=== PATIENT | male | born 1935 | race Caucasian/White ===

== ENCOUNTER 2018-02-03 23:02 | Inpatient (IN) | payer MEDICARE, MEDICAID ==
[~2018-02-03] VITALS: Ht 165.1 cm; Wt 57.2 kg
[~2018-02-03 23:02] MED LIST: AMLO-361 PO; Aspirin PO; CILO100T PO; CLAR10 PO; DICL75TA5 PO; GLIP10TA10 PO; HYDR-4094 PO; Isosorb Dinit/Hydralazine Hcl PO; METF-414 PO; METO-539 PO; Metformin Hcl PO; Metoprolol Tartrate PO; NASOI NS; OMEP20CA10 PO; PENT400T11 PO; SERT50TA12 PO; SUCR1TAB PO; TAMS0.4C31 PO
[2018-02-04] VITALS (8 sets, daily range): BP systolic 137–192; BP diastolic 67–80
[2018-02-04] MEDS ORDERED: METHYLPREDNISOLONE SOD SUCC 125 MG/2 ML VIAL IV STA (00:49)
[2018-02-04] MEDS ORDERED: ALBUTEROL (0.083%) 2.5MG/3ML NEB HHN STA (00:49)
[2018-02-04] MEDS ORDERED: IPRATROPIUM BROMIDE (0.02%) 0.5MG/2.5ML NEB HHN STA (00:49)
[2018-02-04] MEDS ORDERED: LEVOFLOXACIN 750MG PREMIX 150 ML IV ONE (01:00)
[2018-02-04] MEDS ORDERED: SODIUM CHLORIDE 0.9% 1000ML BAG (SEPSIS BOLUS) IV ONE (01:00)
[2018-02-04 01:25] LABS: CHLORIDE 112 mEq/L (98-107)
[2018-02-04 01:29] LABS: PARTIAL THROMBOPLASTIN TIME 27.6 sec (23.4-31.0); PROTHROMBIN TIME 10.3 sec (9.1-11.1)
[2018-02-04 01:32] LABS: BASOPHILS % 0.4 % (0.0-2.0); EOSINOPHILS % 1.2 % (0.0-5.0); HEMATOCRIT. 36.9 % (42.0-52.0); HEMOGLOBIN. 11.8 g/dL (14.0-18.0); LYMPHOCYTES % 13.6 % (20.0-50.0); MEAN CORPUSCULAR HEMOGLOBIN 25.1 pg (28.0-32.0); MEAN CORPUSCULAR VOLUME 78.5 fL (80.0-94.0); MEAN PLATELET VOLUME 8.4 fl (7.4-10.4); MONOCYTES % 7.1 % (2.0-8.0); NEUTROPHILS % 77.7 % (40.0-76.0); PLATELET 288 x1000/uL (130-400); RED CELL DISTRIBUTION WIDTH 17.3 % (11.6-14.6)
[2018-02-04 01:35] LABS: CLARITY URINE CLEAR (CLEAR); COLOR URINE YELLOW (YELLOW); KETONES URINE NEGATIVE (NEGATIVE); LEUKOCYTE ESTERASE URINE NEGATIVE (NEGATIVE); NITRITE URINE NEGATIVE (NEGATIVE); OCCULT BLOOD URINE 1+ (NEGATIVE); PH URINE 6.5 (4.5-8.0); PROTEIN URINE 1+ (NEGATIVE); SPECIFIC GRAVITY URINE 1.004 (1.005-1.030); UROBILINOGEN URINE 0.2 E.U./dL (0.2-1.0)
[2018-02-04] MEDS ORDERED: ASPIRIN 81MG TABLET PO SCH (02:36)
[2018-02-04] MEDS ORDERED: LORAZEPAM 2MG/ML CPJ IV ONE (02:45)
[2018-02-04] MEDS ORDERED: ACETAMINOPHEN 325MG TABLET PO PRN (14:00)
[2018-02-04] MEDS ORDERED: ONDANSETRON HCL 4MG/2ML INJ IV PRN (14:00)
[2018-02-04] MEDS ORDERED: HYDROCODONE/ACETAMINOPHEN 5/325MG TABLET PO PRN (14:00)
[2018-02-04] MEDS ORDERED: LORAZEPAM 0.5MG TABLET PO PRN (14:00)
[2018-02-04] MEDS ORDERED: IPRATROPIUM/ALBUTEROL 0.5-3(2.5)MG/3ML NEB INH PRN (14:00)
[2018-02-04] MEDS ORDERED: CLONIDINE 0.1MG TABLET PO PRN (14:00)
[2018-02-04] MEDS ORDERED: DEXTROSE 50% WATER 50ML SYRINGE IV PRN (14:15)
[2018-02-04] MEDS ORDERED: REGADENOSON 0.4 MG/5 ML IV ONE (15:15)
[2018-02-04 16:10] LABS: *AMPHETAMINES SCREEN URINE NEGATIVE (NEGATIVE); *BARBITURATES SCREEN URINE NEGATIVE (NEGATIVE); *BENZODIAZEPINES SCREEN URINE NEGATIVE (NEGATIVE); *COCAINE SCREEN URINE NEGATIVE (NEGATIVE); METHADONE URINE SCREEN NEGATIVE (NEGATIVE)
[2018-02-04 16:11] LABS: CANNABINOID URINE SCREEN NEGATIVE (NEGATIVE); OPIATES URINE SCREEN NEGATIVE (NEGATIVE); PHENCYCLIDINE URINE SCREEN NEGATIVE (NEGATIVE)
[2018-02-04] MEDS ORDERED: IPRATROPIUM/ALBUTEROL 0.5-3(2.5)MG/3ML NEB HHN PRN (16:15)
[2018-02-04] MEDS: BUDESONIDE 0.5MG/2ML NEB HHN SCH ×2 (16:32→20:20)
[2018-02-04] MEDS: IPRATROPIUM/ALBUTEROL 0.5-3(2.5)MG/3ML NEB HHN SCH ×2 (16:32→20:19)
[2018-02-04] MEDS: NICOTINE 21MG PATCH TD SCH (17:09)
[2018-02-04] MEDS ORDERED: FAMO20TA8 MT (17:21)
[2018-02-04] MEDS ORDERED: CLON0.1T MT (17:21)
[2018-02-04] MEDS ORDERED: AMLO-79 MT (17:21)
[2018-02-04] MEDS ORDERED: OXYB5TAB11 MT (17:21)
[2018-02-04] MEDS ORDERED: SITA100T11 MT (17:21)
[2018-02-04] MEDS ORDERED: ALBU18HF2 IH (17:21)
[2018-02-04] MEDS ORDERED: BUSP10TA3 MT (17:21)
[2018-02-04] MEDS ORDERED: INSULIN LISPRO 100 UNITS/ML SUBCUT SCH (17:30)
[2018-02-04] MEDS: BLOOD SUGAR DIAGNOSTIC STRIP TEST SCH ×2 (18:19→21:49)
[2018-02-04] MEDS: OXYBUTYNIN CHLORIDE 5MG TABLET PO SCH (18:42)
[2018-02-04] MEDS: CLONIDINE 0.1MG TABLET PO SCH (18:42)
[2018-02-04] MEDS: INSULIN LISPRO 100 UNITS/ML SUBCUT SCH ×2 (18:42→21:49)
[2018-02-04 19:06] LABS: PHOSPHORUS 2.3 mg/dL (2.5-4.9)
[2018-02-04 19:11] LABS: CREATINE KINASE MB FRACTION 5.3 ng/mL (0.5-3.6)
[2018-02-04] MEDS: AMLODIPINE 5MG TABLET PO SCH (21:48)
[2018-02-04] MEDS: BUSPIRONE HCL 10MG TABLET PO SCH (22:00)
[2018-02-05] VITALS (9 sets, daily range): BP systolic 131–155; BP diastolic 64–85
[2018-02-05] MEDS: IPRATROPIUM/ALBUTEROL 0.5-3(2.5)MG/3ML NEB HHN SCH ×3 (00:51→15:15)
[2018-02-05] MEDS: BLOOD SUGAR DIAGNOSTIC STRIP TEST SCH ×3 (07:30→17:03)
[2018-02-05 07:55] LABS: MEAN CORPUSCULAR HEMOGLOBIN 25.3 pg (28.0-32.0); MEAN CORPUSCULAR VOLUME 78.6 fL (80.0-94.0); MEAN PLATELET VOLUME 8.5 fl (7.4-10.4); PLATELET 242 x1000/uL (130-400); RED BLOOD CELL COUNT 3.56 mill/uL (4.7-6.1); RED CELL DISTRIBUTION WIDTH 17.4 % (11.6-14.6)
[2018-02-05] MEDS: INSULIN LISPRO 100 UNITS/ML SUBCUT SCH ×3 (08:00→17:07)
[2018-02-05] MEDS: BUSPIRONE HCL 10MG TABLET PO SCH ×3 (09:12→16:58)
[2018-02-05] MEDS: AMLODIPINE 5MG TABLET PO SCH (09:12)
[2018-02-05] MEDS: CLONIDINE 0.1MG TABLET PO SCH ×2 (09:13→16:58)
[2018-02-05] MEDS: OXYBUTYNIN CHLORIDE 5MG TABLET PO SCH ×2 (09:13→16:58)
[2018-02-05] MEDS: NICOTINE 21MG PATCH TD SCH (09:13)
[2018-02-05] MEDS ORDERED: REGADENOSON 0.4 MG/5 ML IV ONE (11:43)
[2018-02-05 14:27] LABS: PLATELET ESTIMATE NORMAL
[2018-02-05] MEDS: BUDESONIDE 0.5MG/2ML NEB HHN SCH (15:15)
[2018-02-05] MEDS ORDERED: AMLO5TAB88 PO (17:36)
[2018-02-05] MEDS ORDERED: SITA50TA3 MT (17:36)
== END 2018-02-05 19:05 | disposition home or self-care (01) | DRG 816 ==
LOC: ER 23:02 → 5EST 02-04 02:22 → EDBEDREQTM 02-04 02:24 → EDBEDREQSVC 02-04 02:24 → EDBEDREQ 02-04 02:24 → ENRESERV 02-04 07:35
PROVIDERS: ADMIT Internal Medicine; ATTEND Internal Medicine
DX: T40.5X1A Poisoning by cocaine, accidental (unintentional), initial encounter (principal); J96.01 Acute respiratory failure with hypoxia; I21.4 Non-ST elevation (NSTEMI) myocardial infarction; D72.829 Elevated white blood cell count, unspecified; E11.22 Type 2 diabetes mellitus with diabetic chronic kidney disease; I13.0 Hypertensive heart and chronic kidney disease with heart failure and stage 1 through stage 4 chronic kidney disease, or unspecified chronic kidney disease; I50.9 Heart failure, unspecified; E78.5 Hyperlipidemia, unspecified; F14.90 Cocaine use, unspecified, uncomplicated; F17.210 Nicotine dependence, cigarettes, uncomplicated; F41.9 Anxiety disorder, unspecified; J44.1 Chronic obstructive pulmonary disease with (acute) exacerbation; J68.0 Bronchitis and pneumonitis due to chemicals, gases, fumes and vapors; K59.00 Constipation, unspecified; K64.9 Unspecified hemorrhoids; N18.9 Chronic kidney disease, unspecified; Z79.82 Long term (current) use of aspirin; Z79.84 Long term (current) use of oral hypoglycemic drugs; Y92.89 Other specified places as the place of occurrence of the external cause; Z71.6 Tobacco abuse counseling; Z91.81 History of falling; Z79.899 Other long term (current) drug therapy
CPT/HCPCS: 36415; 71045; 78452; 80048; 80061; 80305; 82550; 82553; 82962; 83036; 83605; 83735; 83880; 84100; 84443; 84484; 93005; 93017; 93306; 93970; 94640; 96361; 96365; 96375; 97162; 99285; A9500; C1893; J1815; J1956; J2060; J2785; J2930; J7030; J7611; J7620; J7626

== ENCOUNTER 2018-04-17 12:18 | Inpatient (IN) | payer MEDICARE, MEDICAID ==
[~2018-04-17] VITALS: Ht 152.4 cm; Wt 51.0 kg
[~2018-04-17 12:18] MED LIST changes: +ALBU18HF2 IH; -AMLO-361 PO; +AMLO5TAB88 PO; -Aspirin PO; +BUSP10TA3 MT; -CILO100T PO; -CLAR10 PO; +CLON0.1T MT; -DICL75TA5 PO; +FAMO20TA8 MT; -GLIP10TA10 PO; -HYDR-4094 PO; -Isosorb Dinit/Hydralazine Hcl PO; -METF-414 PO; -METO-539 PO; -Metformin Hcl PO; -Metoprolol Tartrate PO; -NASOI NS; -OMEP20CA10 PO; +OXYB5TAB11 MT; -PENT400T11 PO; -SERT50TA12 PO; +SITA50TA3 MT; -SUCR1TAB PO; -TAMS0.4C31 PO
[2018-04-17 14:17] LABS: BASOPHILS % 0.2 % (0.0-2.0); EOSINOPHILS % 0.4 % (0.0-5.0); HEMATOCRIT. 39.3 % (42.0-52.0); HEMOGLOBIN. 12.4 g/dL (14.0-18.0); LYMPHOCYTES % 14.3 % (20.0-50.0); MEAN CORPUSCULAR HEMOGLOBIN 25.1 pg (28.0-32.0); MEAN CORPUSCULAR VOLUME 79.7 fL (80.0-94.0); MEAN PLATELET VOLUME 8.8 fl (7.4-10.4); MONOCYTES % 6.7 % (2.0-8.0); NEUTROPHILS % 78.4 % (40.0-76.0); PLATELET 243 x1000/uL (130-400); RED BLOOD CELL COUNT 4.94 mill/uL (4.7-6.1)
[2018-04-17 14:23] LABS: CHLORIDE 110 mEq/L (98-107)
[2018-04-17 14:24] LABS: INR 1.1; PROTHROMBIN TIME 10.7 sec (9.1-11.1)
[2018-04-17 15:00] LABS: CLARITY URINE CLEAR (CLEAR); COLOR URINE ORANGE (YELLOW); KETONES URINE NEGATIVE (NEGATIVE); LEUKOCYTE ESTERASE URINE NEGATIVE (NEGATIVE); NITRITE URINE NEGATIVE (NEGATIVE); OCCULT BLOOD URINE 3+ (NEGATIVE); PROTEIN URINE 2+ (NEGATIVE); SPECIFIC GRAVITY URINE 1.013 (1.005-1.030); UROBILINOGEN URINE 0.2 E.U./dL (0.2-1.0)
[2018-04-17] MEDS ORDERED: FUROSEMIDE 40MG/4ML VIAL IVP ONE (15:15)
[2018-04-17 17:35] VITALS: BP 120/81
[2018-04-17 20:00] VITALS: BP 160/85
[2018-04-17] MEDS ORDERED: ONDANSETRON HCL 4MG/2ML INJ IV PRN (20:30)
[2018-04-17] MEDS ORDERED: DEXTROSE 50% WATER 50ML SYRINGE IV PRN (20:30)
[2018-04-17] MEDS: INSULIN LISPRO 100 UNITS/ML SUBCUT SCH (21:00)
[2018-04-17] MEDS: BLOOD SUGAR DIAGNOSTIC STRIP TEST SCH (21:00)
[2018-04-17] MEDS: FUROSEMIDE 40MG/4ML VIAL IVP SCH (22:04)
[2018-04-17] MEDS: CLONIDINE 0.1MG TABLET PO SCH (22:04)
[2018-04-17] MEDS: AMLODIPINE 5MG TABLET PO SCH (22:05)
[2018-04-17] MEDS: IPRATROPIUM/ALBUTEROL 0.5-3(2.5)MG/3ML NEB HHN SCH (22:23)
[2018-04-17 23:44] LABS: CREATINE KINASE MB FRACTION 5.1 ng/mL (0.5-3.6)
[2018-04-18] VITALS: BP 167/68
[2018-04-18] MEDS: IPRATROPIUM/ALBUTEROL 0.5-3(2.5)MG/3ML NEB HHN SCH ×7 (02:58→23:51)
[2018-04-18 04:00] VITALS: BP 133/52
[2018-04-18 06:35] LABS: CREATINE KINASE MB FRACTION 4.4 ng/mL (0.5-3.6)
[2018-04-18] MEDS: BLOOD SUGAR DIAGNOSTIC STRIP TEST SCH ×4 (06:41→20:58)
[2018-04-18 07:06] LABS: BASOPHILS % 0.2 % (0.0-2.0); EOSINOPHILS % 0.5 % (0.0-5.0); HEMATOCRIT. 35.9 % (42.0-52.0); HEMOGLOBIN. 11.8 g/dL (14.0-18.0); MEAN CORPUSCULAR HEMOGLOBIN 25.8 pg (28.0-32.0); MEAN CORPUSCULAR VOLUME 78.6 fL (80.0-94.0); MEAN PLATELET VOLUME 8.7 fl (7.4-10.4); MONOCYTES % 8.9 % (2.0-8.0); NEUTROPHILS % 75.4 % (40.0-76.0); PLATELET 221 x1000/uL (130-400); RED BLOOD CELL COUNT 4.57 mill/uL (4.7-6.1); RED CELL DISTRIBUTION WIDTH 16.5 % (11.6-14.6)
[2018-04-18] MEDS: INSULIN LISPRO 100 UNITS/ML SUBCUT SCH ×4 (07:50→21:00)
[2018-04-18 08:00] VITALS: BP 167/72
[2018-04-18] MEDS: AMLODIPINE 5MG TABLET PO SCH ×2 (08:34→20:58)
[2018-04-18] MEDS: OXYBUTYNIN CHLORIDE 5MG TABLET PO SCH ×2 (08:34→17:11)
[2018-04-18] MEDS: FUROSEMIDE 40MG/4ML VIAL IVP SCH (08:34)
[2018-04-18] MEDS: FAMOTIDINE 20MG TABLET PO SCH (08:34)
[2018-04-18] MEDS: BUSPIRONE HCL 10MG TABLET PO SCH ×3 (08:34→17:11)
[2018-04-18] MEDS: CLONIDINE 0.1MG TABLET PO SCH ×2 (08:35→20:58)
[2018-04-18] MEDS: ENOXAPARIN 30MG/0.3ML SYR SUBCUT SCH (08:37)
[2018-04-18 11:28] VITALS: BP 133/64
[2018-04-18 16:04] VITALS: BP 135/66
[2018-04-18 16:25] LABS: CREATINE KINASE MB FRACTION 4.6 ng/mL (0.5-3.6)
[2018-04-18] MEDS: ACETAMINOPHEN 325MG TABLET PO PRN (17:18)
[2018-04-18 20:00] VITALS: BP 132/71
[2018-04-18] MEDS: BUDESONIDE 0.5MG/2ML NEB HHN SCH (20:50)
[2018-04-18] MEDS: LACTULOSE 20G/30ML UDC PO PRN (20:58)
[2018-04-19] VITALS: BP 147/77
[2018-04-19] MEDS: IPRATROPIUM/ALBUTEROL 0.5-3(2.5)MG/3ML NEB HHN SCH ×5 (02:30→21:47)
[2018-04-19 04:00] VITALS: BP 150/74
[2018-04-19] MEDS: INSULIN LISPRO 100 UNITS/ML SUBCUT SCH ×3 (07:50→20:32)
[2018-04-19 08:00] VITALS: BP 174/85
[2018-04-19] MEDS: BLOOD SUGAR DIAGNOSTIC STRIP TEST SCH ×3 (08:14→20:22)
[2018-04-19] MEDS: FAMOTIDINE 20MG TABLET PO SCH (08:21)
[2018-04-19] MEDS: AMLODIPINE 5MG TABLET PO SCH ×2 (08:21→20:21)
[2018-04-19] MEDS: BUSPIRONE HCL 10MG TABLET PO SCH ×3 (08:21→16:45)
[2018-04-19] MEDS: OXYBUTYNIN CHLORIDE 5MG TABLET PO SCH ×2 (08:21→16:45)
[2018-04-19] MEDS: FUROSEMIDE 40MG/4ML VIAL IVP SCH (08:21)
[2018-04-19] MEDS: CLONIDINE 0.1MG TABLET PO SCH ×3 (08:22→22:00)
[2018-04-19] MEDS: ENOXAPARIN 30MG/0.3ML SYR SUBCUT SCH (08:24)
[2018-04-19] MEDS: BUDESONIDE 0.5MG/2ML NEB HHN SCH ×2 (10:00→21:46)
[2018-04-19 12:00] VITALS: BP 150/72
[2018-04-19 16:00] VITALS: BP 139/63
[2018-04-19] MEDS: GABAPENTIN 300MG CAPSULE PO PRN (16:46)
[2018-04-19 20:00] VITALS: BP 144/61
[2018-04-19] MEDS: ACETAMINOPHEN 325MG TABLET PO PRN (20:22)
[2018-04-20 00:03] VITALS: BP 127/58
[2018-04-20] MEDS: IPRATROPIUM/ALBUTEROL 0.5-3(2.5)MG/3ML NEB HHN SCH ×6 (01:20→20:23)
[2018-04-20 04:08] VITALS: BP 126/62
[2018-04-20] MEDS: CLONIDINE 0.1MG TABLET PO SCH ×3 (05:44→21:16)
[2018-04-20] MEDS: BLOOD SUGAR DIAGNOSTIC STRIP TEST SCH ×4 (07:20→21:51)
[2018-04-20 07:28] LABS: HEMATOCRIT 34.1 % (42.0-52.0); HEMOGLOBIN 10.8 g/dL (14.0-18.0); MEAN CORPUSCULAR HEMOGLOBIN 24.9 pg (28.0-32.0); MEAN CORPUSCULAR VOLUME 78.8 fL (80.0-94.0); PLATELET 227 x1000/uL (130-400); RED BLOOD CELL COUNT 4.33 mill/uL (4.7-6.1); RED CELL DISTRIBUTION WIDTH 16.7 % (11.6-14.6)
[2018-04-20] MEDS: INSULIN LISPRO 100 UNITS/ML SUBCUT SCH ×4 (07:47→21:00)
[2018-04-20 08:03] VITALS: BP 137/68
[2018-04-20] MEDS: BUDESONIDE 0.5MG/2ML NEB HHN SCH ×2 (08:16→20:23)
[2018-04-20] MEDS: FUROSEMIDE 40MG/4ML VIAL IVP SCH (09:10)
[2018-04-20] MEDS: AMLODIPINE 5MG TABLET PO SCH ×2 (09:11→21:16)
[2018-04-20] MEDS: ENOXAPARIN 30MG/0.3ML SYR SUBCUT SCH (09:11)
[2018-04-20] MEDS: FAMOTIDINE 20MG TABLET PO SCH (09:11)
[2018-04-20] MEDS: BUSPIRONE HCL 10MG TABLET PO SCH ×3 (09:11→17:15)
[2018-04-20] MEDS: GABAPENTIN 300MG CAPSULE PO PRN (09:12)
[2018-04-20] MEDS: OXYBUTYNIN CHLORIDE 5MG TABLET PO SCH ×2 (09:12→17:15)
[2018-04-20 12:00] VITALS: BP 117/61
[2018-04-20 16:00] VITALS: BP 127/59
[2018-04-20 20:00] VITALS: BP 126/55
[2018-04-21] VITALS: BP 142/64
[2018-04-21] MEDS: IPRATROPIUM/ALBUTEROL 0.5-3(2.5)MG/3ML NEB HHN SCH ×7 (00:30→22:25)
[2018-04-21 04:00] VITALS: BP 131/58
[2018-04-21] MEDS: CLONIDINE 0.1MG TABLET PO SCH ×3 (06:20→21:03)
[2018-04-21] MEDS: BLOOD SUGAR DIAGNOSTIC STRIP TEST SCH ×4 (06:45→20:47)
[2018-04-21] MEDS: INSULIN LISPRO 100 UNITS/ML SUBCUT SCH ×4 (07:11→20:47)
[2018-04-21 08:00] VITALS: BP 146/56
[2018-04-21] MEDS: AMLODIPINE 5MG TABLET PO SCH ×2 (08:05→20:46)
[2018-04-21] MEDS: BUSPIRONE HCL 10MG TABLET PO SCH ×3 (08:05→17:00)
[2018-04-21] MEDS: FAMOTIDINE 20MG TABLET PO SCH (08:05)
[2018-04-21] MEDS: OXYBUTYNIN CHLORIDE 5MG TABLET PO SCH ×2 (08:05→16:59)
[2018-04-21] MEDS: FUROSEMIDE 40MG/4ML VIAL IVP SCH (08:05)
[2018-04-21] MEDS: ENOXAPARIN 30MG/0.3ML SYR SUBCUT SCH (09:00)
[2018-04-21] MEDS: BUDESONIDE 0.5MG/2ML NEB HHN SCH (09:27)
[2018-04-21 12:30] VITALS: BP 125/62
[2018-04-21] MEDS: SODIUM CHLORIDE 0.45% 1,000 ML IV SCH (12:56)
[2018-04-21 15:11] LABS: BG BASE EXCESS -2.5 mmol/L (-2.0-2.0); BG CARBOXYHEMOGLOBIN 0.4 % (0.5-1.5); BG FRACTION INSPIRED OXYGEN 21; BG HCO3 ACT 21.7 mmol/L (22.0-26.0); BG METHEMOGLOBIN 0.4 % (0.0-1.5); BG OXYGEN SATURATION 90.9 % (92.0-98.5); BG OXYHEMOGLOBIN 90.2 % (94.0-97.0); BG PCO2 35.2 mmHg (35.0-45.0); BG PH 7.407 (7.350-7.450); BG PO2 65.2 mmHg (75.0-100.0); BG SAMPLE SITE RIGHT RADIAL; BG TOTAL HEMOGLOBIN 11.7 g/dL (12.0-18.0); BG VENT MODE ROOM AIR
[2018-04-21 16:00] VITALS: BP 137/61
[2018-04-21] MEDS: LACTULOSE 20G/30ML UDC PO PRN (17:34)
[2018-04-21 20:00] VITALS: BP 145/73
[2018-04-21] MEDS: TAMSULOSIN HCL 0.4MG SR CAPSULE PO SCH (20:46)
[2018-04-22 00:11] VITALS: BP 139/65
[2018-04-22] MEDS: IPRATROPIUM/ALBUTEROL 0.5-3(2.5)MG/3ML NEB HHN SCH ×6 (02:44→21:51)
[2018-04-22] MEDS: SODIUM CHLORIDE 0.45% 1,000 ML IV SCH ×2 (03:12→21:31)
[2018-04-22 04:00] VITALS: BP 154/66
[2018-04-22] MEDS: CLONIDINE 0.1MG TABLET PO SCH ×3 (06:31→21:31)
[2018-04-22] MEDS: BLOOD SUGAR DIAGNOSTIC STRIP TEST SCH ×4 (06:31→21:31)
[2018-04-22] MEDS: INSULIN LISPRO 100 UNITS/ML SUBCUT SCH ×4 (07:50→21:00)
[2018-04-22 08:00] VITALS: BP 140/55
[2018-04-22] MEDS: FUROSEMIDE 40MG/4ML VIAL IVP SCH (08:06)
[2018-04-22] MEDS: OXYBUTYNIN CHLORIDE 5MG TABLET PO SCH ×2 (08:06→17:17)
[2018-04-22] MEDS: BUSPIRONE HCL 10MG TABLET PO SCH ×3 (08:06→17:17)
[2018-04-22] MEDS: FAMOTIDINE 20MG TABLET PO SCH (08:06)
[2018-04-22] MEDS: AMLODIPINE 5MG TABLET PO SCH ×2 (08:06→21:31)
[2018-04-22] MEDS: ENOXAPARIN 30MG/0.3ML SYR SUBCUT SCH (08:25)
[2018-04-22 12:00] VITALS: BP 136/58
[2018-04-22 16:00] VITALS: BP 131/59
[2018-04-22] MEDS: GABAPENTIN 300MG CAPSULE PO PRN (17:17)
[2018-04-22] MEDS: LACTULOSE 20G/30ML UDC PO PRN (17:17)
[2018-04-22 19:06] LABS: ANTI-NUCLEAR ANTIBODIES DIRECT Negative (Negative)
[2018-04-22 20:00] VITALS: BP 131/59
[2018-04-22] MEDS: TAMSULOSIN HCL 0.4MG SR CAPSULE PO SCH (21:31)
[2018-04-23] VITALS: BP 150/69
[2018-04-23] MEDS: IPRATROPIUM/ALBUTEROL 0.5-3(2.5)MG/3ML NEB HHN SCH ×6 (00:59→19:55)
[2018-04-23 04:00] VITALS: BP 132/56
[2018-04-23 05:22] LABS: COMPLEMENT C3 142 mg/dL (82-167)
[2018-04-23] MEDS: CLONIDINE 0.1MG TABLET PO SCH ×3 (06:33→21:09)
[2018-04-23] MEDS: BLOOD SUGAR DIAGNOSTIC STRIP TEST SCH ×4 (06:33→21:09)
[2018-04-23] MEDS: INSULIN LISPRO 100 UNITS/ML SUBCUT SCH ×4 (07:50→21:00)
[2018-04-23 08:00] VITALS: BP 121/63
[2018-04-23] MEDS: FUROSEMIDE 40MG/4ML VIAL IVP SCH (08:17)
[2018-04-23] MEDS: OXYBUTYNIN CHLORIDE 5MG TABLET PO SCH ×2 (08:20→17:57)
[2018-04-23] MEDS: AMLODIPINE 5MG TABLET PO SCH ×2 (08:20→21:09)
[2018-04-23] MEDS: BUSPIRONE HCL 10MG TABLET PO SCH ×3 (08:20→17:57)
[2018-04-23] MEDS: ENOXAPARIN 30MG/0.3ML SYR SUBCUT SCH (08:21)
[2018-04-23] MEDS: FAMOTIDINE 20MG TABLET PO SCH (08:21)
[2018-04-23 12:00] VITALS: BP 117/54
[2018-04-23] MEDS: SODIUM CHLORIDE 0.45% 1,000 ML IV SCH (12:52)
[2018-04-23 14:27] LABS: BASOPHILS % 0.3 % (0.0-2.0); EOSINOPHILS % 0.9 % (0.0-5.0); HEMOGLOBIN. 10.4 g/dL (14.0-18.0); LYMPHOCYTES % 9.9 % (20.0-50.0); MEAN CORPUSCULAR HEMOGLOBIN 25.2 pg (28.0-32.0); MEAN CORPUSCULAR VOLUME 80.2 fL (80.0-94.0); MEAN PLATELET VOLUME 8.5 fl (7.4-10.4); MONOCYTES % 8.9 % (2.0-8.0); PLATELET 216 x1000/uL (130-400); RED BLOOD CELL COUNT 4.11 mill/uL (4.7-6.1); RED CELL DISTRIBUTION WIDTH 16.5 % (11.6-14.6)
[2018-04-23 16:00] VITALS: BP 153/59
[2018-04-23] MEDS ORDERED: SODIUM POLYSTYRENE SULFONATE 15 G/60 ML BOT PO NR (20:30)
[2018-04-23 20:49] VITALS: BP 134/55
[2018-04-23] MEDS: TAMSULOSIN HCL 0.4MG SR CAPSULE PO SCH (21:08)
[2018-04-23] MEDS: LACTULOSE 20G/30ML UDC PO SCH (21:08)
[2018-04-24] VITALS (7 sets, daily range): BP systolic 129–150; BP diastolic 47–65
[2018-04-24] MEDS: IPRATROPIUM/ALBUTEROL 0.5-3(2.5)MG/3ML NEB HHN SCH ×6 (00:20→22:22)
[2018-04-24] MEDS: SODIUM CHLORIDE 0.45% 1,000 ML IV SCH ×2 (05:40→23:05)
[2018-04-24 06:35] LABS: BASOPHILS % 0.3 % (0.0-2.0); HEMATOCRIT. 35.9 % (42.0-52.0); HEMOGLOBIN. 11.4 g/dL (14.0-18.0); LYMPHOCYTES % 9.3 % (20.0-50.0); MEAN CORPUSCULAR HEMOGLOBIN 25.3 pg (28.0-32.0); MEAN CORPUSCULAR VOLUME 79.3 fL (80.0-94.0); MEAN PLATELET VOLUME 8.4 fl (7.4-10.4); MONOCYTES % 7.4 % (2.0-8.0); PLATELET 270 x1000/uL (130-400); RED BLOOD CELL COUNT 4.53 mill/uL (4.7-6.1); RED CELL DISTRIBUTION WIDTH 16.6 % (11.6-14.6)
[2018-04-24] MEDS: BLOOD SUGAR DIAGNOSTIC STRIP TEST SCH ×4 (06:51→21:06)
[2018-04-24] MEDS: CLONIDINE 0.1MG TABLET PO SCH ×3 (06:51→23:04)
[2018-04-24] MEDS: INSULIN LISPRO 100 UNITS/ML SUBCUT SCH ×4 (07:50→21:00)
[2018-04-24] MEDS: LACTULOSE 20G/30ML UDC PO SCH (09:00)
[2018-04-24] MEDS: OXYBUTYNIN CHLORIDE 5MG TABLET PO SCH ×2 (09:04→17:43)
[2018-04-24] MEDS: AMLODIPINE 5MG TABLET PO SCH ×2 (09:04→21:06)
[2018-04-24] MEDS: FUROSEMIDE 40MG/4ML VIAL IVP SCH (09:04)
[2018-04-24] MEDS: BUSPIRONE HCL 10MG TABLET PO SCH (09:04)
[2018-04-24] MEDS: FAMOTIDINE 20MG TABLET PO SCH (09:04)
[2018-04-24] MEDS: ENOXAPARIN 30MG/0.3ML SYR SUBCUT SCH (09:10)
[2018-04-24] MEDS: TAMSULOSIN HCL 0.4MG SR CAPSULE PO SCH (21:05)
[2018-04-25] VITALS: BP 105/57
[2018-04-25] MEDS: IPRATROPIUM/ALBUTEROL 0.5-3(2.5)MG/3ML NEB HHN SCH ×4 (01:46→11:42)
[2018-04-25 04:00] VITALS: BP 149/73
[2018-04-25] MEDS: BLOOD SUGAR DIAGNOSTIC STRIP TEST SCH ×2 (06:28→12:46)
[2018-04-25] MEDS: CLONIDINE 0.1MG TABLET PO SCH ×2 (06:28→14:15)
[2018-04-25 06:46] LABS: BASOPHILS % 0.4 % (0.0-2.0); HEMATOCRIT. 31.7 % (42.0-52.0); HEMOGLOBIN. 10.1 g/dL (14.0-18.0); LYMPHOCYTES % 12.4 % (20.0-50.0); MEAN CORPUSCULAR HEMOGLOBIN 25.4 pg (28.0-32.0); MEAN CORPUSCULAR VOLUME 79.2 fL (80.0-94.0); MEAN PLATELET VOLUME 8.2 fl (7.4-10.4); MONOCYTES % 8.5 % (2.0-8.0); NEUTROPHILS % 77.7 % (40.0-76.0); PLATELET 248 x1000/uL (130-400); RED BLOOD CELL COUNT 3.99 mill/uL (4.7-6.1); RED CELL DISTRIBUTION WIDTH 16.2 % (11.6-14.6)
[2018-04-25] MEDS: INSULIN LISPRO 100 UNITS/ML SUBCUT SCH ×2 (07:40→12:46)
[2018-04-25 08:00] VITALS: BP 138/60
[2018-04-25] MEDS: ENOXAPARIN 30MG/0.3ML SYR SUBCUT SCH (08:25)
[2018-04-25] MEDS: FUROSEMIDE 40MG/4ML VIAL IVP SCH (08:25)
[2018-04-25] MEDS: FAMOTIDINE 20MG TABLET PO SCH (08:25)
[2018-04-25] MEDS: AMLODIPINE 5MG TABLET PO SCH (08:25)
[2018-04-25] MEDS: OXYBUTYNIN CHLORIDE 5MG TABLET PO SCH ×2 (08:25→16:49)
[2018-04-25 12:00] VITALS: BP 124/55
[2018-04-25] MEDS: SODIUM CHLORIDE 0.45% 1,000 ML IV SCH (14:14)
[2018-04-25 14:58] VITALS: BP 124/55
[2018-04-25 16:00] VITALS: BP 135/67
== END 2018-04-25 18:45 | disposition home or self-care (01) | DRG 199 ==
LOC: ER 12:18 → 6WST 15:03 → EDBEDREQ 15:08 → ENRESERV 16:57
PROVIDERS: ADMIT Internal Medicine; ATTEND Internal Medicine
DX: I16.0 Hypertensive urgency (principal); J96.01 Acute respiratory failure with hypoxia; N17.9 Acute kidney failure, unspecified; I50.31 Acute diastolic (congestive) heart failure; E11.22 Type 2 diabetes mellitus with diabetic chronic kidney disease; J44.0 Chronic obstructive pulmonary disease with (acute) lower respiratory infection; D50.9 Iron deficiency anemia, unspecified; F17.200 Nicotine dependence, unspecified, uncomplicated; J44.1 Chronic obstructive pulmonary disease with (acute) exacerbation; N13.8 Other obstructive and reflux uropathy; N18.9 Chronic kidney disease, unspecified; N40.1 Benign prostatic hyperplasia with lower urinary tract symptoms; J20.9 Acute bronchitis, unspecified; I13.0 Hypertensive heart and chronic kidney disease with heart failure and stage 1 through stage 4 chronic kidney disease, or unspecified chronic kidney disease; R33.8 Other retention of urine; J45.909 Unspecified asthma, uncomplicated; Z98.49 Cataract extraction status, unspecified eye; Z79.899 Other long term (current) drug therapy
CPT/HCPCS: 36415; 36600; 71045; 76770; 80048; 82375; 82550; 82553; 82805; 82962; 83880; 84484; 85027; 86038; 86160; 93005; 93306; 94640; 96374; 97110; 97116; 97162; 99285; C1893; J1650; J1815; J1940; J7620; J7626; A4315

== ENCOUNTER 2018-05-17 14:44 | Inpatient (IN) | payer MEDICARE, MEDICAID ==
[~2018-05-17] VITALS: Ht 160 cm; Wt 54.1 kg
[2018-05-17] MEDS ORDERED: SODIUM CHLORIDE 0.9% 1,000 ML IV ONE (16:18)
[2018-05-17] MEDS ORDERED: LEVOFLOXACIN 250MG TABLET PO ONE (18:15)
[2018-05-17 18:19] LABS: CLARITY URINE CLEAR (CLEAR); COLOR URINE YELLOW (YELLOW); KETONES URINE NEGATIVE (NEGATIVE); LEUKOCYTE ESTERASE URINE 1+ (NEGATIVE); NITRITE URINE NEGATIVE (NEGATIVE); OCCULT BLOOD URINE TRACE (NEGATIVE); PH URINE 5.5 (4.5-8.0); PROTEIN URINE TRACE (NEGATIVE); SPECIFIC GRAVITY URINE 1.011 (1.005-1.030); UROBILINOGEN URINE 0.2 E.U./dL (0.2-1.0)
[2018-05-17 18:20] LABS: BASOPHILS % 0.4 % (0.0-2.0); EOSINOPHILS % 1.1 % (0.0-5.0); HEMOGLOBIN. 9.9 g/dL (14.0-18.0); LYMPHOCYTES % 15.1 % (20.0-50.0); MEAN CORPUSCULAR VOLUME 78.2 fL (80.0-94.0); MEAN PLATELET VOLUME 8.3 fl (7.4-10.4); MONOCYTES % 8.2 % (2.0-8.0); NEUTROPHILS % 75.2 % (40.0-76.0); PLATELET 219 x1000/uL (130-400); RED BLOOD CELL COUNT 3.96 mill/uL (4.7-6.1); RED CELL DISTRIBUTION WIDTH 16.7 % (11.6-14.6)
[2018-05-17 18:21] LABS: CHLORIDE 113 mEq/L (98-107)
[2018-05-17 18:22] LABS: PROTHROMBIN TIME 10.2 sec (9.1-11.1)
[2018-05-17 21:35] VITALS: BP 124/61
[2018-05-17 22:41] VITALS: BP 129/61
[2018-05-18] VITALS: BP 133/55
[2018-05-18] MEDS ORDERED: CEFTRIAXONE 250 MG in DEXTROSE 5% WATER 50 ML IV SCH (02:00)
[2018-05-18] MEDS ORDERED: SODIUM CHLORIDE 0.9% 1,000 ML IV SCH (03:30)
[2018-05-18] MEDS: MORPHINE SULFATE 4 MG/ML CPJ (NOT FOR IM USE) IV PRN ×2 (03:44→15:56)
[2018-05-18 04:00] VITALS: BP 152/62
[2018-05-18] MEDS ORDERED: CEFTRIAXONE 250 MG in DEXTROSE 5% WATER 50 ML IV NR (05:00)
[2018-05-18] MEDS ORDERED: ACETAMINOPHEN 325MG TABLET PO PRN (08:15)
[2018-05-18 08:30] VITALS: BP 147/54
[2018-05-18] MEDS: ONDANSETRON HCL 4MG/2ML INJ IV PRN ×2 (08:37→17:36)
[2018-05-18] MEDS: AMLODIPINE 5MG TABLET PO SCH ×2 (08:40→09:12)
[2018-05-18] MEDS: TAMSULOSIN HCL 0.4MG SR CAPSULE PO SCH ×2 (08:40→09:12)
[2018-05-18 09:23] LABS: BASOPHILS % 0.6 % (0.0-2.0); EOSINOPHILS % 1.2 % (0.0-5.0); HEMATOCRIT. 29.6 % (42.0-52.0); HEMOGLOBIN. 9.4 g/dL (14.0-18.0); LYMPHOCYTES % 27.9 % (20.0-50.0); MEAN CORPUSCULAR VOLUME 78.6 fL (80.0-94.0); MEAN PLATELET VOLUME 8.6 fl (7.4-10.4); MONOCYTES % 8.5 % (2.0-8.0); NEUTROPHILS % 61.8 % (40.0-76.0); PLATELET 208 x1000/uL (130-400); RED BLOOD CELL COUNT 3.77 mill/uL (4.7-6.1); RED CELL DISTRIBUTION WIDTH 16.8 % (11.6-14.6)
[2018-05-18] MEDS ORDERED: LEVOFLOXACIN 500MG TABLET PO SCH (11:00)
[2018-05-18 12:00] VITALS: BP 142/64
[2018-05-18] MEDS: IPRATROPIUM/ALBUTEROL 0.5-3(2.5)MG/3ML NEB HHN PRN ×2 (13:17→16:53)
[2018-05-18] MEDS ORDERED: CEFEPIME 1,000 MG in DEXTROSE 5% WATER 50 ML IV SCH (13:30)
[2018-05-18] MEDS ORDERED: FUROSEMIDE 40MG TABLET PO SCH (13:45)
[2018-05-18 16:00] VITALS: BP 132/66
[2018-05-18 20:00] VITALS: BP 147/67
[2018-05-19] VITALS (7 sets, daily range): BP systolic 150–171; BP diastolic 66–80
[2018-05-19] MEDS: IPRATROPIUM/ALBUTEROL 0.5-3(2.5)MG/3ML NEB HHN PRN ×2 (01:21→05:05)
[2018-05-19] MEDS: ONDANSETRON HCL 4MG/2ML INJ IV PRN (01:51)
[2018-05-19 06:00] LABS: BASOPHILS % 0.1 % (0.0-2.0); EOSINOPHILS % 0.1 % (0.0-5.0); HEMATOCRIT. 29.5 % (42.0-52.0); HEMOGLOBIN. 9.4 g/dL (14.0-18.0); MEAN CORPUSCULAR VOLUME 77.9 fL (80.0-94.0); MEAN PLATELET VOLUME 8.2 fl (7.4-10.4); NEUTROPHILS % 83.8 % (40.0-76.0); PLATELET 233 x1000/uL (130-400); RED BLOOD CELL COUNT 3.78 mill/uL (4.7-6.1); RED CELL DISTRIBUTION WIDTH 16.5 % (11.6-14.6)
[2018-05-19] MEDS: AMLODIPINE 5MG TABLET PO SCH (08:12)
[2018-05-19] MEDS: TAMSULOSIN HCL 0.4MG SR CAPSULE PO SCH (08:12)
[2018-05-19] MEDS ORDERED: FUROSEMIDE 40MG/4ML VIAL IVP SCH (09:00)
[2018-05-19] MEDS ORDERED: CLONIDINE 0.1MG TABLET PO PRN (11:45)
[2018-05-19] MEDS ORDERED: CEFEPIME 500 MG in DEXTROSE 5% WATER 50 ML IV SCH (13:00)
[2018-05-19] MEDS ORDERED: HYDRALAZINE HCL 50MG TABLET PO SCH (14:00)
[2018-05-19] MEDS ORDERED: AMLODIPINE 5MG TABLET PO SCH (21:00)
== END 2018-05-19 16:45 | disposition home or self-care (01) | DRG 194 ==
LOC: ER 14:44 → 8WST 18:16 → EDBEDREQ 18:22 → ENRESERV 19:36
PROVIDERS: ADMIT Internal Medicine; ATTEND Internal Medicine
DX: I13.0 Hypertensive heart and chronic kidney disease with heart failure and stage 1 through stage 4 chronic kidney disease, or unspecified chronic kidney disease (principal); J96.10 Chronic respiratory failure, unspecified whether with hypoxia or hypercapnia; E11.22 Type 2 diabetes mellitus with diabetic chronic kidney disease; N18.4 Chronic kidney disease, stage 4 (severe); E44.1 Mild protein-calorie malnutrition; N45.1 Epididymitis; I50.33 Acute on chronic diastolic (congestive) heart failure; N50.89 Other specified disorders of the male genital organs; J44.9 Chronic obstructive pulmonary disease, unspecified; E87.8 Other disorders of electrolyte and fluid balance, not elsewhere classified; N39.0 Urinary tract infection, site not specified; J98.11 Atelectasis; D64.9 Anemia, unspecified; Z74.01 Bed confinement status; Z79.84 Long term (current) use of oral hypoglycemic drugs
CPT/HCPCS: 36415; 71045; 76870; 80048; 82962; 83605; 83880; 84484; 93005; 93970; 93976; 94640; 96365; 97162; 99285; J0692; J0696; J1940; J2270; J2405; J7030; J7060; J7620

== ENCOUNTER 2018-06-05 04:38 | Inpatient (IN) | payer MEDICARE, MEDICAID ==
[~2018-06-05] VITALS: Ht 162.6 cm; Wt 52.2 kg
[2018-06-05 05:39] LABS: BASOPHILS % 0.5 % (0.0-2.0); EOSINOPHILS % 0.7 % (0.0-5.0); HEMATOCRIT. 40.3 % (42.0-52.0); HEMOGLOBIN. 12.9 g/dL (14.0-18.0); MEAN CORPUSCULAR HEMOGLOBIN 24.9 pg (28.0-32.0); MEAN CORPUSCULAR VOLUME 78.1 fL (80.0-94.0); MEAN PLATELET VOLUME 7.4 fl (7.4-10.4); MONOCYTES % 6.7 % (2.0-8.0); NEUTROPHILS % 81.1 % (40.0-76.0); PLATELET 377 x1000/uL (130-400); RED BLOOD CELL COUNT 5.16 mill/uL (4.7-6.1); RED CELL DISTRIBUTION WIDTH 17.7 % (11.6-14.6)
[2018-06-05 05:46] LABS: CHLORIDE 107 mEq/L (98-107)
[2018-06-05] MEDS ORDERED: ASPIRIN 81MG TABLET PO ONE (07:00)
[2018-06-05] MEDS ORDERED: FUROSEMIDE 20MG/2ML VIAL IVP ONE (07:00)
[2018-06-05 09:40] VITALS: BP 192/89
[2018-06-05] MEDS ORDERED: DEXTROSE 50% WATER 50ML SYRINGE IV PRN (09:45)
[2018-06-05] MEDS ORDERED: IPRATROPIUM/ALBUTEROL 0.5-3(2.5)MG/3ML NEB HHN PRN (09:45)
[2018-06-05] MEDS ORDERED: ACETAMINOPHEN 325MG TABLET PO PRN (09:45)
[2018-06-05] MEDS ORDERED: DEXTROSE 50% WATER 50ML SYRINGE IV NR (09:45)
[2018-06-05] MEDS ORDERED: SODIUM BICARBONATE 8.4% 1 MEQ/ML 50ML SYR IV NR (09:45)
[2018-06-05 09:53] VITALS: BP 192/87
[2018-06-05] MEDS ORDERED: HYDRALAZINE 20MG/ML VIAL IV PRN (10:15)
[2018-06-05] MEDS: PANTOPRAZOLE SODIUM 40 MG/VIAL IV SCH (10:25)
[2018-06-05] MEDS: SIMETHICONE 80MG TABLET CHEW PO PRN ×2 (10:25→20:57)
[2018-06-05] MEDS: ONDANSETRON HCL 4MG/2ML INJ IV PRN ×2 (10:26→20:57)
[2018-06-05] MEDS ORDERED: ENALAPRIL 1.25 MG in DEXTROSE 5% WATER 49 ML IV PRN (10:30)
[2018-06-05] MEDS ORDERED: INSULIN REGULAR (HUMULIN R) UD 100 UNITS/ML SYR IV NR (11:00)
[2018-06-05 12:00] VITALS: BP 182/84
[2018-06-05] MEDS ORDERED: SODIUM POLYSTYRENE SULFONATE 15 G/60 ML BOT PO NR ×2 (12:00→18:30)
[2018-06-05 12:15] VITALS: BP 137/76
[2018-06-05] MEDS: INSULIN LISPRO 100 UNITS/ML SUBCUT SCH ×3 (12:24→20:25)
[2018-06-05] MEDS: BLOOD SUGAR DIAGNOSTIC STRIP TEST SCH ×3 (12:24→20:57)
[2018-06-05] MEDS ORDERED: BISACODYL 10MG SUPP PR PRN (13:00)
[2018-06-05 15:54] LABS: CLARITY URINE CLEAR (CLEAR); COLOR URINE YELLOW (YELLOW); KETONES URINE NEGATIVE (NEGATIVE); LEUKOCYTE ESTERASE URINE NEGATIVE (NEGATIVE); NITRITE URINE NEGATIVE (NEGATIVE); OCCULT BLOOD URINE NEGATIVE (NEGATIVE); PH URINE 7.5 (4.5-8.0); PROTEIN URINE NEGATIVE (NEGATIVE); SPECIFIC GRAVITY URINE 1.008 (1.005-1.030); UROBILINOGEN URINE 0.2 E.U./dL (0.2-1.0)
[2018-06-05 16:43] VITALS: BP 141/78
[2018-06-05] MEDS ORDERED: [UNRECOGNIZED DRUG - REMARK] XX SCH (17:15)
[2018-06-05 20:00] VITALS: BP 143/69
[2018-06-05] MEDS: METOPROLOL TARTRATE 50MG TABLET PO SCH (20:24)
[2018-06-05] MEDS: AMLODIPINE 5MG TABLET PO SCH (20:25)
[2018-06-05] MEDS ORDERED: ZOLPIDEM TARTRATE 5MG TABLET PO PRN (21:00)
[2018-06-06] VITALS (7 sets, daily range): BP systolic 143–173; BP diastolic 54–70
[2018-06-06] MEDS: BLOOD SUGAR DIAGNOSTIC STRIP TEST SCH ×2 (06:25→13:05)
[2018-06-06] MEDS: INSULIN LISPRO 100 UNITS/ML SUBCUT SCH ×2 (06:25→12:40)
[2018-06-06 07:15] LABS: BASOPHILS % 0.3 % (0.0-2.0); EOSINOPHILS % 0.7 % (0.0-5.0); HEMATOCRIT. 41.7 % (42.0-52.0); HEMOGLOBIN. 12.9 g/dL (14.0-18.0); LYMPHOCYTES % 11.7 % (20.0-50.0); MEAN CORPUSCULAR VOLUME 80.6 fL (80.0-94.0); MEAN PLATELET VOLUME 7.8 fl (7.4-10.4); MONOCYTES % 7.3 % (2.0-8.0); PLATELET 326 x1000/uL (130-400); RED BLOOD CELL COUNT 5.17 mill/uL (4.7-6.1); RED CELL DISTRIBUTION WIDTH 17.8 % (11.6-14.6)
[2018-06-06] MEDS: ONDANSETRON HCL 4MG/2ML INJ IV PRN (07:19)
[2018-06-06] MEDS ORDERED: MECLIZINE 25MG TABLET PO PRN (08:00)
[2018-06-06] MEDS ORDERED: SODIUM POLYSTYRENE SULFONATE 15 G/60 ML BOT PO NR (08:00)
[2018-06-06] MEDS: PANTOPRAZOLE SODIUM 40 MG/VIAL IV SCH (08:19)
[2018-06-06] MEDS: METOPROLOL TARTRATE 50MG TABLET PO SCH (08:20)
[2018-06-06] MEDS: AMLODIPINE 5MG TABLET PO SCH (08:20)
[2018-06-06] MEDS: SIMETHICONE 80MG TABLET CHEW PO PRN (08:21)
[2018-06-06] MEDS ORDERED: ASPIRIN 81MG TABLET PO SCH (09:00)
[2018-06-06] MEDS ORDERED: SODIUM CHLORIDE 0.9% 500 ML IV ONE (14:45)
== END 2018-06-06 16:30 | disposition home or self-care (01) | DRG 194 ==
LOC: ER 04:38 → EDUNIT# 04:38 → 8WST 06:43 → EDBEDREQTM 06:46 → EDBEDREQ 06:46 → ENRESERV 07:47
PROVIDERS: ADMIT Internal Medicine; ATTEND Internal Medicine
DX: I13.0 Hypertensive heart and chronic kidney disease with heart failure and stage 1 through stage 4 chronic kidney disease, or unspecified chronic kidney disease (principal); E86.9 Volume depletion, unspecified; J96.10 Chronic respiratory failure, unspecified whether with hypoxia or hypercapnia; N17.9 Acute kidney failure, unspecified; N18.4 Chronic kidney disease, stage 4 (severe); K21.9 Gastro-esophageal reflux disease without esophagitis; I50.33 Acute on chronic diastolic (congestive) heart failure; E87.5 Hyperkalemia; E11.22 Type 2 diabetes mellitus with diabetic chronic kidney disease; D64.9 Anemia, unspecified; E78.5 Hyperlipidemia, unspecified; J44.9 Chronic obstructive pulmonary disease, unspecified; N40.0 Benign prostatic hyperplasia without lower urinary tract symptoms; Z99.81 Dependence on supplemental oxygen; Z79.51 Long term (current) use of inhaled steroids; Z79.899 Other long term (current) drug therapy
CPT/HCPCS: 36415; 71045; 80048; 82962; 83880; 84132; 84484; 92610; 93005; 96374; 99285; C9113; J0360; J1815; J1940; J2405; J3490; J8597; A4315

== ENCOUNTER 2018-06-08 11:16 | Emergency (ER) | payer MEDICARE, MEDICAID ==
[~2018-06-08] VITALS: Ht 162.6 cm; Wt 50.0 kg
[2018-06-08] MEDS ORDERED: MORPHINE SULFATE 4 MG/ML CPJ (NOT FOR IM USE) IV STA (11:28)
[2018-06-08 12:50] LABS: BASOPHILS % 0.5 % (0.0-2.0); EOSINOPHILS % 0.6 % (0.0-5.0); HEMATOCRIT. 37.2 % (42.0-52.0); HEMOGLOBIN. 11.8 g/dL (14.0-18.0); LYMPHOCYTES % 13.1 % (20.0-50.0); MEAN CORPUSCULAR VOLUME 78.6 fL (80.0-94.0); MEAN PLATELET VOLUME 7.1 fl (7.4-10.4); MONOCYTES % 6.1 % (2.0-8.0); NEUTROPHILS % 79.7 % (40.0-76.0); PLATELET 275 x1000/uL (130-400); RED BLOOD CELL COUNT 4.73 mill/uL (4.7-6.1); RED CELL DISTRIBUTION WIDTH 17.4 % (11.6-14.6)
[2018-06-08 12:57] LABS: INR 1.1; PROTHROMBIN TIME 10.7 sec (9.1-11.1)
[2018-06-08 12:58] LABS: CHLORIDE 108 mEq/L (98-107)
[2018-06-08 13:23] LABS: CLARITY URINE CLOUDY (CLEAR); COLOR URINE ORANGE (YELLOW); KETONES URINE TRACE (NEGATIVE); LEUKOCYTE ESTERASE URINE 1+ (NEGATIVE); NITRITE URINE NEGATIVE (NEGATIVE); OCCULT BLOOD URINE 3+ (NEGATIVE); PH URINE 5.5 (4.5-8.0); PROTEIN URINE 2+ (NEGATIVE); SPECIFIC GRAVITY URINE 1.016 (1.005-1.030); UROBILINOGEN URINE 0.2 E.U./dL (0.2-1.0)
[2018-06-08 16:25] VITALS: BP 167/67
== END 2018-06-08 17:14 | disposition home or self-care (01) ==
LOC: ER 11:16
DX: N43.3 Hydrocele, unspecified (principal)
CPT/HCPCS: 36415; 76870; 80053; 81003; 85025; 85610; 87086; 93976; 96374; 99284; J2270; P9612; 51702; A4315

== ENCOUNTER 2019-04-11 22:51 | Inpatient (IN) | payer MEDICARE, MEDICAID ==
[~2019-04-11] VITALS: Ht 162.6 cm; Wt 52.2 kg
[~2019-04-11 22:51] MED LIST changes: +AMLO10TA80 MT; -AMLO5TAB88 PO; +BESI5DRO EACHEYE; +BROM3DRO OP; -BUSP10TA3 MT; +BUSP10TA3 PO; +CARD12 PO; +CLON-457 PO; -CLON0.1T MT; -FAMO20TA8 MT; +FLUT15.844 BOTHNSTRLS; +GABA-531 MT; +OXYB5SYR2 PO; -OXYB5TAB11 MT; +SITA100T11 PO; -SITA50TA3 MT; +TAMS-11 PO
[2019-04-11] MEDS ORDERED: SODIUM CHLORIDE 0.9% 1,000 ML IV ONE (23:44)
[2019-04-11] MEDS ORDERED: ACETAMINOPHEN 325MG TABLET PO STA (23:44)
[2019-04-12] VITALS (8 sets, daily range): BP systolic 134–163; BP diastolic 62–81
[2019-04-12 00:06] LABS: BG BASE EXCESS -3.9 mmol/L (-2.0-2.0); BG CARBOXYHEMOGLOBIN 0.3 % (0.5-1.5); BG DEOXYHEMOGLOBIN 6.8 % (0.0-5.0); BG FRACTION INSPIRED OXYGEN 34; BG HCO3 ACT 19.6 mmol/L (22.0-26.0); BG METHEMOGLOBIN 0.3 % (0.0-1.5); BG OXYGEN SATURATION 93.2 % (92.0-98.5); BG OXYHEMOGLOBIN 92.6 % (94.0-97.0); BG PCO2 30.6 mmHg (35.0-45.0); BG PH 7.424 (7.350-7.450); BG PO2 66.9 mmHg (75.0-100.0); BG SAMPLE SITE RIGHT RADIAL; BG TOTAL HEMOGLOBIN 11.5 g/dL (12.0-18.0); BG VENT MODE NASAL CANNULA
[2019-04-12 00:21] LABS: BASOPHILS % 0.4 % (0.0-2.0); EOSINOPHILS % 0.2 % (0.0-5.0); HEMATOCRIT. 35.8 % (42.0-52.0); HEMOGLOBIN. 11.6 g/dL (14.0-18.0); LYMPHOCYTES % 9.7 % (20.0-50.0); MEAN CORPUSCULAR VOLUME 80.7 fL (80.0-94.0); MEAN PLATELET VOLUME 8.4 fl (7.4-10.4); MONOCYTES % 8.2 % (2.0-8.0); NEUTROPHILS % 81.5 % (40.0-76.0); PLATELET 238 x1000/uL (130-400); RED BLOOD CELL COUNT 4.44 mill/uL (4.7-6.1); RED CELL DISTRIBUTION WIDTH 16.7 % (11.6-14.6)
[2019-04-12 00:26] LABS: CHLORIDE 112 mEq/L (98-107)
[2019-04-12] MEDS ORDERED: PIPERACILLIN/TAZ 3.375G PREMIX 50 ML IV ONE (01:45)
[2019-04-12] MEDS ORDERED: VANCOMYCIN 1 G PREMIX 200 ML IV ONE (01:45)
[2019-04-12 04:17] LABS: CLARITY URINE CLEAR (CLEAR); COLOR URINE YELLOW (YELLOW); KETONES URINE NEGATIVE (NEGATIVE); LEUKOCYTE ESTERASE URINE TRACE (NEGATIVE); NITRITE URINE NEGATIVE (NEGATIVE); OCCULT BLOOD URINE 2+ (NEGATIVE); PROTEIN URINE 3+ (NEGATIVE); SPECIFIC GRAVITY URINE 1.013 (1.005-1.030); UROBILINOGEN URINE 0.2 E.U./dL (0.2-1.0)
[2019-04-12] MEDS ORDERED: DOCUSATE SODIUM 100MG CAPSULE PO PRN (06:30)
[2019-04-12] MEDS ORDERED: LORAZEPAM 2MG/ML CPJ IV PRN (06:30)
[2019-04-12] MEDS ORDERED: IPRATROPIUM/ALBUTEROL 0.5-3(2.5)MG/3ML NEB NEB PRN (06:30)
[2019-04-12] MEDS ORDERED: PIPERACILLIN/TAZ 3.375G PREMIX 50 ML IV SCH (06:30)
[2019-04-12] MEDS ORDERED: ACETAMINOPHEN 325MG TABLET PO PRN (06:30)
[2019-04-12] MEDS ORDERED: ONDANSETRON HCL 4MG/2ML INJ IV PRN (06:30)
[2019-04-12] MEDS ORDERED: NA PHOS,M-B/NA PHOS,DI-BA ENEMA 118ML PR PRN (06:30)
[2019-04-12] MEDS ORDERED: ENOXAPARIN 40MG/0.4ML SYR SUBCUT SCH (06:30)
[2019-04-12] MEDS ORDERED: DIPHENHYDRAMINE 50MG/ML VIAL IV PRN (06:30)
[2019-04-12] MEDS ORDERED: MAGNESIUM/ALUMINUM HYDROXIDE/SIMETHICONE 30ML UDC PO PRN (06:30)
[2019-04-12] MEDS: CLONIDINE 0.1MG TABLET PO PRN ×2 (08:45→19:32)
[2019-04-12] MEDS: ENOXAPARIN 30MG/0.3ML SYR SUBCUT SCH (12:22)
[2019-04-12] MEDS: SODIUM CHLORIDE 0.45% 1,000 ML IV SCH (12:22)
[2019-04-12] MEDS: ASPIRIN 81MG EC TABLET PO SCH (12:22)
[2019-04-12] MEDS: PIPERACILLIN/TAZOBACTAM 2.25 G in DEXTROSE 5% WATER 50 ML IV SCH ×3 (12:23→23:07)
[2019-04-12] MEDS ORDERED: DEXTROSE 50% WATER 50ML SYRINGE IV PRN (12:30)
[2019-04-12] MEDS ORDERED: GABAPENTIN 300MG CAPSULE PO PRN (12:30)
[2019-04-12] MEDS: BLOOD SUGAR DIAGNOSTIC STRIP TEST SCH ×3 (12:37→20:50)
[2019-04-12] MEDS: INSULIN LISPRO 100 UNITS/ML SUBCUT SCH ×3 (12:37→21:04)
[2019-04-12] MEDS: HYDROCODONE/ACETAMINOPHEN 5/325MG TABLET PO PRN (12:50)
[2019-04-12] MEDS: AMLODIPINE 10MG TABLET PO SCH (12:51)
[2019-04-12] MEDS: TAMSULOSIN HCL 0.4MG SR CAPSULE PO SCH (12:51)
[2019-04-12] MEDS ORDERED: GUAIFENESIN/DM 600MG/30MG ER TAB 12HR PO PRN (14:30)
[2019-04-12] MEDS ORDERED: PNEUMOCOCCAL 23-VAL P-SAC VAC 0.5 ML IM ONE (15:00)
[2019-04-12] MEDS: BUDESONIDE 0.5MG/2ML NEB HHN SCH (15:55)
[2019-04-12 18:34] LABS: CREATINE KINASE MB FRACTION 4.7 ng/mL (0.5-3.6)
[2019-04-12] MEDS: IPRATROPIUM/ALBUTEROL 0.5-3(2.5)MG/3ML NEB HHN SCH (20:19)
[2019-04-12] MEDS: FLUTICASONE PROPIONATE 50MCG/SPRAY BOTTLE BOTHNSTRLS SCH (20:50)
[2019-04-12 21:49] LABS: PHOSPHORUS 2.8 mg/dL (2.5-4.9)
[2019-04-12 22:15] LABS: HEPATITIS B SURFACE ANTIGEN NEGATIVE
[2019-04-13] VITALS (12 sets, daily range): BP systolic 53–157; BP diastolic 14–87
[2019-04-13] MEDS: IPRATROPIUM/ALBUTEROL 0.5-3(2.5)MG/3ML NEB HHN SCH ×4 (01:04→21:18)
[2019-04-13 01:24] LABS: CREATINE KINASE MB FRACTION 3.7 ng/mL (0.5-3.6)
[2019-04-13] MEDS: PIPERACILLIN/TAZOBACTAM 2.25 G in DEXTROSE 5% WATER 50 ML IV SCH ×3 (05:44→18:11)
[2019-04-13] MEDS: MORPHINE SULFATE 2 MG/ML CPJ (NOT FOR IM USE) IV PRN ×3 (05:50→20:08)
[2019-04-13 07:00] LABS: HEMATOCRIT. 29.1 % (42.0-52.0); HEMOGLOBIN. 9.7 g/dL (14.0-18.0); MEAN CORPUSCULAR HEMOGLOBIN 26.5 pg (28.0-32.0); MEAN CORPUSCULAR VOLUME 79.8 fL (80.0-94.0); MEAN PLATELET VOLUME 8.4 fl (7.4-10.4); PLATELET 189 x1000/uL (130-400); RED BLOOD CELL COUNT 3.65 mill/uL (4.7-6.1); RED CELL DISTRIBUTION WIDTH 16.5 % (11.6-14.6)
[2019-04-13 07:01] LABS: CHLORIDE 115 mEq/L (98-107)
[2019-04-13 07:12] LABS: CREATINE KINASE MB FRACTION 3.2 ng/mL (0.5-3.6)
[2019-04-13 07:13] LABS: CREATINE KINASE 138 IU/L (39-308); HDL CHOLESTEROL 61 mg/dL (40-59); LDL CHOLESTEROL 33 mg/dL (5-100)
[2019-04-13 07:14] LABS: T4 FREE 1.12 ng/dL (0.76-1.46)
[2019-04-13] MEDS: BLOOD SUGAR DIAGNOSTIC STRIP TEST SCH ×4 (07:30→20:42)
[2019-04-13] MEDS: BUDESONIDE 0.5MG/2ML NEB HHN SCH ×2 (08:00→21:18)
[2019-04-13] MEDS: INSULIN LISPRO 100 UNITS/ML SUBCUT SCH ×4 (08:00→20:42)
[2019-04-13 08:37] LABS: PLATELET ESTIMATE NORMAL
[2019-04-13] MEDS: GUAIFENESIN 200MG/10ML SUGAR FREE UDC PO PRN (09:14)
[2019-04-13] MEDS: ASPIRIN 81MG EC TABLET PO SCH (09:14)
[2019-04-13] MEDS: FLUTICASONE PROPIONATE 50MCG/SPRAY BOTTLE BOTHNSTRLS SCH ×2 (09:14→20:36)
[2019-04-13] MEDS: CLONIDINE 0.1MG TABLET PO PRN (09:14)
[2019-04-13] MEDS: AMLODIPINE 10MG TABLET PO SCH (09:15)
[2019-04-13] MEDS: GABAPENTIN 300MG CAPSULE PO SCH (09:15)
[2019-04-13] MEDS: ENOXAPARIN 30MG/0.3ML SYR SUBCUT SCH (09:15)
[2019-04-13] MEDS: TAMSULOSIN HCL 0.4MG SR CAPSULE PO SCH (09:16)
[2019-04-13] MEDS: SODIUM CHLORIDE 0.45% 1,000 ML IV SCH (10:00)
[2019-04-13] MEDS: METOPROLOL TARTRATE 25MG TABLET PO SCH (20:36)
[2019-04-14] VITALS (10 sets, daily range): BP systolic 129–176; BP diastolic 68–86
[2019-04-14] MEDS: PIPERACILLIN/TAZOBACTAM 2.25 G in DEXTROSE 5% WATER 50 ML IV SCH ×4 (00:53→21:21)
[2019-04-14] MEDS: IPRATROPIUM/ALBUTEROL 0.5-3(2.5)MG/3ML NEB HHN SCH ×4 (02:06→20:45)
[2019-04-14] MEDS: BLOOD SUGAR DIAGNOSTIC STRIP TEST SCH ×4 (07:38→21:22)
[2019-04-14] MEDS: INSULIN LISPRO 100 UNITS/ML SUBCUT SCH ×4 (07:38→21:00)
[2019-04-14 07:48] LABS: BASOPHILS % 0.2 % (0.0-2.0); EOSINOPHILS % 0.1 % (0.0-5.0); HEMOGLOBIN. 9.9 g/dL (14.0-18.0); LYMPHOCYTES % 12.7 % (20.0-50.0); MEAN PLATELET VOLUME 8.6 fl (7.4-10.4); MONOCYTES % 8.5 % (2.0-8.0); NEUTROPHILS % 78.5 % (40.0-76.0); PLATELET 196 x1000/uL (130-400); RED BLOOD CELL COUNT 3.83 mill/uL (4.7-6.1); RED CELL DISTRIBUTION WIDTH 16.1 % (11.6-14.6)
[2019-04-14] MEDS: BUDESONIDE 0.5MG/2ML NEB HHN SCH ×2 (08:15→20:45)
[2019-04-14] MEDS: AMLODIPINE 10MG TABLET PO SCH (09:02)
[2019-04-14] MEDS: ENOXAPARIN 30MG/0.3ML SYR SUBCUT SCH (09:02)
[2019-04-14] MEDS: GABAPENTIN 300MG CAPSULE PO SCH (09:02)
[2019-04-14] MEDS: TAMSULOSIN HCL 0.4MG SR CAPSULE PO SCH (09:03)
[2019-04-14] MEDS: METOPROLOL TARTRATE 25MG TABLET PO SCH ×2 (09:03→21:21)
[2019-04-14] MEDS: ASPIRIN 81MG EC TABLET PO SCH (09:03)
[2019-04-14] MEDS: SODIUM CHLORIDE 0.45% 1,000 ML IV SCH (09:07)
[2019-04-14] MEDS: FLUTICASONE PROPIONATE 50MCG/SPRAY BOTTLE BOTHNSTRLS SCH ×2 (09:09→21:21)
[2019-04-14 10:08] LABS: *CREATININE RANDOM URINE 137.2 mg/dL (Not Estab.); MICROALBUMIN RANDOM URINE 1210.5 ug/mL (Not Estab.)
[2019-04-14] MEDS: CLONIDINE 0.1MG TABLET PO PRN (12:40)
[2019-04-14] MEDS: GUAIFENESIN 200MG/10ML SUGAR FREE UDC PO PRN (12:40)
[2019-04-15] VITALS (11 sets, daily range): BP systolic 127–163; BP diastolic 57–84
[2019-04-15] MEDS: IPRATROPIUM/ALBUTEROL 0.5-3(2.5)MG/3ML NEB HHN SCH ×3 (02:24→14:46)
[2019-04-15] MEDS: PIPERACILLIN/TAZOBACTAM 2.25 G in DEXTROSE 5% WATER 50 ML IV SCH ×2 (05:03→14:14)
[2019-04-15] MEDS: CLONIDINE 0.1MG TABLET PO PRN (06:56)
[2019-04-15] MEDS: BLOOD SUGAR DIAGNOSTIC STRIP TEST SCH ×3 (07:04→17:04)
[2019-04-15] MEDS: INSULIN LISPRO 100 UNITS/ML SUBCUT SCH ×3 (07:06→17:04)
[2019-04-15] MEDS: ASPIRIN 81MG EC TABLET PO SCH (09:43)
[2019-04-15] MEDS: AMLODIPINE 10MG TABLET PO SCH (09:43)
[2019-04-15] MEDS: METOPROLOL TARTRATE 25MG TABLET PO SCH (09:44)
[2019-04-15] MEDS: FLUTICASONE PROPIONATE 50MCG/SPRAY BOTTLE BOTHNSTRLS SCH (09:44)
[2019-04-15] MEDS: GABAPENTIN 300MG CAPSULE PO SCH (09:44)
[2019-04-15] MEDS: TAMSULOSIN HCL 0.4MG SR CAPSULE PO SCH (09:44)
[2019-04-15] MEDS: ENOXAPARIN 30MG/0.3ML SYR SUBCUT SCH (09:45)
[2019-04-15] MEDS: HYDROCODONE/ACETAMINOPHEN 5/325MG TABLET PO PRN (14:14)
== END 2019-04-15 20:00 | disposition home health service (06) | DRG 137 ==
LOC: ER 22:51 → 5EST 04-12 04:14 → EDBEDREQTM 04-12 04:24 → EDBEDREQ 04-12 04:24 → ENRESERV 04-12 07:47
PROVIDERS: ADMIT Internal Medicine; ATTEND Internal Medicine
DX: J69.0 Pneumonitis due to inhalation of food and vomit (principal); J96.00 Acute respiratory failure, unspecified whether with hypoxia or hypercapnia; N17.9 Acute kidney failure, unspecified; E46 Unspecified protein-calorie malnutrition; I13.0 Hypertensive heart and chronic kidney disease with heart failure and stage 1 through stage 4 chronic kidney disease, or unspecified chronic kidney disease; R65.10 Systemic inflammatory response syndrome (SIRS) of non-infectious origin without acute organ dysfunction; E11.22 Type 2 diabetes mellitus with diabetic chronic kidney disease; I50.9 Heart failure, unspecified; J06.9 Acute upper respiratory infection, unspecified; J44.1 Chronic obstructive pulmonary disease with (acute) exacerbation; J02.9 Acute pharyngitis, unspecified; D64.9 Anemia, unspecified; I35.0 Nonrheumatic aortic (valve) stenosis; E78.5 Hyperlipidemia, unspecified; N18.9 Chronic kidney disease, unspecified; K57.90 Diverticulosis of intestine, part unspecified, without perforation or abscess without bleeding; F17.210 Nicotine dependence, cigarettes, uncomplicated; N40.0 Benign prostatic hyperplasia without lower urinary tract symptoms; Z79.84 Long term (current) use of oral hypoglycemic drugs; Z79.899 Other long term (current) drug therapy; Z68.1 Body mass index [BMI] 19.9 or less, adult
CPT/HCPCS: 36415; 36600; 71045; 78582; 80048; 80053; 80061; 81003; 82043; 82375; 82550; 82553; 82570; 82805; 82962; 83036; 83605; 83880; 84100; 84156; 84439; 84443; 84484; 85025; 85379; 86038; 86803; 87070; 87077; 87186; 87340; 87430; 87804; 90732; 93005; 93306; 93970; 94640; 96361; 96365; 96367; 96372; 97162; 99291; A9558; J1650; J1815; J2270; J2405; J2543; J3370; J7030; J7060; J7626

== ENCOUNTER 2019-10-27 04:39 | Inpatient (IN) | payer MEDICARE, MEDICAID ==
[~2019-10-27] VITALS: Ht 162.6 cm; Wt 57.2 kg
[2019-10-27] MEDS ORDERED: ASPIRIN 81MG TABLET PO ONE (07:00)
[2019-10-27] MEDS ORDERED: NITROGLYCERIN 0.4MG TABLET SL SL PRN (07:00)
[2019-10-27 07:09] LABS: CHLORIDE 115 mEq/L (98-107)
[2019-10-27 07:15] LABS: BASOPHILS % 0.6 % (0.0-2.0); EOSINOPHILS % 1.6 % (0.0-5.0); HEMOGLOBIN. 11.8 g/dL (14.0-18.0); LYMPHOCYTES % 20.5 % (20.0-50.0); MEAN CORPUSCULAR HEMOGLOBIN 24.6 pg (28.0-32.0); MEAN CORPUSCULAR VOLUME 77.4 fL (80.0-94.0); MEAN PLATELET VOLUME 8.3 fl (7.4-10.4); MONOCYTES % 9.1 % (2.0-8.0); NEUTROPHILS % 68.2 % (40.0-76.0); PLATELET 244 x1000/uL (130-400); RED BLOOD CELL COUNT 4.77 mill/uL (4.7-6.1); RED CELL DISTRIBUTION WIDTH 18.4 % (11.6-14.6)
[2019-10-27] MEDS ORDERED: FUROSEMIDE 20MG TABLET PO ONE (08:00)
[2019-10-27 16:00] VITALS: BP 176/77
[2019-10-27 16:44] VITALS: BP 176/77
[2019-10-27] MEDS ORDERED: DIPHENHYDRAMINE 50MG/ML VIAL IV PRN (17:00)
[2019-10-27] MEDS ORDERED: ENOXAPARIN 40MG/0.4ML SYR SUBCUT SCH (17:00)
[2019-10-27] MEDS ORDERED: ONDANSETRON HCL 4MG/2ML INJ IV PRN (17:00)
[2019-10-27] MEDS ORDERED: ACETAMINOPHEN 325MG TABLET PO PRN (17:00)
[2019-10-27] MEDS ORDERED: IPRATROPIUM/ALBUTEROL 0.5-3(2.5)MG/3ML NEB HHN PRN (17:00)
[2019-10-27] MEDS ORDERED: DEXTROSE 50% WATER 50ML SYRINGE IV PRN (17:15)
[2019-10-27] MEDS: BLOOD SUGAR DIAGNOSTIC STRIP TEST SCH ×2 (17:37→20:38)
[2019-10-27] MEDS: INSULIN LISPRO 100 UNITS/ML SUBCUT SCH ×2 (17:37→20:44)
[2019-10-27 17:46] LABS: CLARITY URINE CLEAR (CLEAR); COLOR URINE YELLOW (YELLOW); KETONES URINE NEGATIVE (NEGATIVE); LEUKOCYTE ESTERASE URINE 1+ (NEGATIVE); NITRITE URINE POSITIVE (NEGATIVE); OCCULT BLOOD URINE 1+ (NEGATIVE); PROTEIN URINE 2+ (NEGATIVE); SPECIFIC GRAVITY URINE 1.011 (1.005-1.030); UROBILINOGEN URINE 0.2 E.U./dL (0.2-1.0)
[2019-10-27] MEDS: ENOXAPARIN 30MG/0.3ML SYR SUBCUT SCH (17:48)
[2019-10-27] MEDS: CLONIDINE 0.1MG TABLET PO PRN (17:49)
[2019-10-27 20:00] VITALS: BP 165/72
[2019-10-28] VITALS: BP 158/81
[2019-10-28 02:00] VITALS: BP 171/91
[2019-10-28] MEDS: CLONIDINE 0.1MG TABLET PO PRN ×2 (02:35→23:50)
[2019-10-28 04:00] VITALS: BP 151/63
[2019-10-28] MEDS: BLOOD SUGAR DIAGNOSTIC STRIP TEST SCH ×4 (06:24→21:55)
[2019-10-28] MEDS: INSULIN LISPRO 100 UNITS/ML SUBCUT SCH ×4 (07:13→21:00)
[2019-10-28 07:41] LABS: CHLORIDE 113 mEq/L (98-107)
[2019-10-28 07:54] LABS: BASOPHILS % 0.4 % (0.0-2.0); EOSINOPHILS % 1.4 % (0.0-5.0); HEMATOCRIT. 36.5 % (42.0-52.0); HEMOGLOBIN. 11.7 g/dL (14.0-18.0); LYMPHOCYTES % 15.1 % (20.0-50.0); MEAN CORPUSCULAR HEMOGLOBIN 24.7 pg (28.0-32.0); MEAN CORPUSCULAR VOLUME 77.2 fL (80.0-94.0); MEAN PLATELET VOLUME 8.2 fl (7.4-10.4); MONOCYTES % 8.4 % (2.0-8.0); NEUTROPHILS % 74.7 % (40.0-76.0); PLATELET 222 x1000/uL (130-400); RED BLOOD CELL COUNT 4.73 mill/uL (4.7-6.1); RED CELL DISTRIBUTION WIDTH 18.5 % (11.6-14.6)
[2019-10-28 07:57] LABS: LDL CHOLESTEROL 45 mg/dL (5-100)
[2019-10-28 07:59] LABS: HDL CHOLESTEROL 59 mg/dL (40-59)
[2019-10-28] MEDS: FUROSEMIDE 40MG/4ML VIAL IVP SCH (08:10)
[2019-10-28 12:00] VITALS: BP 168/70
[2019-10-28] MEDS: CLONIDINE 0.1MG TABLET PO SCH ×2 (13:14→17:40)
[2019-10-28] MEDS: DILTIAZEM HCL 120MG CAPSULE CD 24HR PO SCH (13:15)
[2019-10-28 16:00] VITALS: BP 150/63
[2019-10-28] MEDS: ENOXAPARIN 30MG/0.3ML SYR SUBCUT SCH (17:41)
[2019-10-28 17:46] LABS: CREATINE KINASE 250 IU/L (39-308)
[2019-10-28 20:00] VITALS: BP 126/56
[2019-10-29] VITALS: BP 163/91
[2019-10-29 04:00] VITALS: BP 145/63
[2019-10-29 06:10] LABS: BASOPHILS % 0.4 % (0.0-2.0); EOSINOPHILS % 1.5 % (0.0-5.0); HEMATOCRIT. 38.2 % (42.0-52.0); HEMOGLOBIN. 12.2 g/dL (14.0-18.0); LYMPHOCYTES % 17.4 % (20.0-50.0); MEAN CORPUSCULAR VOLUME 77.9 fL (80.0-94.0); MEAN PLATELET VOLUME 8.3 fl (7.4-10.4); MONOCYTES % 7.7 % (2.0-8.0); PLATELET 214 x1000/uL (130-400); RED CELL DISTRIBUTION WIDTH 18.4 % (11.6-14.6)
[2019-10-29] MEDS: BLOOD SUGAR DIAGNOSTIC STRIP TEST SCH ×4 (06:22→20:36)
[2019-10-29] MEDS: INSULIN LISPRO 100 UNITS/ML SUBCUT SCH ×4 (07:06→20:42)
[2019-10-29 08:00] VITALS: BP 151/69
[2019-10-29] MEDS: FUROSEMIDE 40MG/4ML VIAL IVP SCH (08:55)
[2019-10-29] MEDS: DILTIAZEM HCL 120MG CAPSULE CD 24HR PO SCH (08:55)
[2019-10-29] MEDS: CLONIDINE 0.1MG TABLET PO SCH ×2 (08:56→17:33)
[2019-10-29] MEDS: GUAIFENESIN 600MG ER TABLET PO SCH ×2 (11:25→20:43)
[2019-10-29 12:00] VITALS: BP 139/54
[2019-10-29 16:00] VITALS: BP 152/59
[2019-10-29] MEDS: ENOXAPARIN 30MG/0.3ML SYR SUBCUT SCH (17:33)
[2019-10-29 23:16] VITALS: BP 131/59
[2019-10-30 04:00] VITALS: BP 108/53
[2019-10-30] MEDS: BLOOD SUGAR DIAGNOSTIC STRIP TEST SCH ×4 (06:54→20:49)
[2019-10-30] MEDS: INSULIN LISPRO 100 UNITS/ML SUBCUT SCH ×4 (07:33→20:49)
[2019-10-30 08:00] VITALS: BP 144/58
[2019-10-30 08:00] LABS: BASOPHILS % 0.4 % (0.0-2.0); HEMATOCRIT. 37.4 % (42.0-52.0); HEMOGLOBIN. 12.1 g/dL (14.0-18.0); LYMPHOCYTES % 17.3 % (20.0-50.0); MEAN CORPUSCULAR HEMOGLOBIN 25.1 pg (28.0-32.0); MEAN CORPUSCULAR VOLUME 77.6 fL (80.0-94.0); MEAN PLATELET VOLUME 8.6 fl (7.4-10.4); MONOCYTES % 9.4 % (2.0-8.0); NEUTROPHILS % 71.9 % (40.0-76.0); PLATELET 212 x1000/uL (130-400); RED BLOOD CELL COUNT 4.82 mill/uL (4.7-6.1); RED CELL DISTRIBUTION WIDTH 17.6 % (11.6-14.6)
[2019-10-30] MEDS: FUROSEMIDE 40MG/4ML VIAL IVP SCH (09:03)
[2019-10-30] MEDS: DILTIAZEM HCL 120MG CAPSULE CD 24HR PO SCH (09:03)
[2019-10-30] MEDS: CLONIDINE 0.1MG TABLET PO SCH ×2 (09:04→17:18)
[2019-10-30] MEDS: GUAIFENESIN 600MG ER TABLET PO SCH ×2 (09:04→20:51)
[2019-10-30 12:00] VITALS: BP 152/61
[2019-10-30 16:00] VITALS: BP 157/58
[2019-10-30] MEDS: ENOXAPARIN 30MG/0.3ML SYR SUBCUT SCH (17:18)
[2019-10-30 20:00] VITALS: BP 146/59
[2019-10-31] VITALS (7 sets, daily range): BP systolic 141–165; BP diastolic 56–75
[2019-10-31 06:08] LABS: BASOPHILS % 0.4 % (0.0-2.0); EOSINOPHILS % 0.8 % (0.0-5.0); HEMATOCRIT. 36.5 % (42.0-52.0); HEMOGLOBIN. 11.8 g/dL (14.0-18.0); LYMPHOCYTES % 13.9 % (20.0-50.0); MEAN CORPUSCULAR VOLUME 77.4 fL (80.0-94.0); MEAN PLATELET VOLUME 8.6 fl (7.4-10.4); MONOCYTES % 9.2 % (2.0-8.0); NEUTROPHILS % 75.7 % (40.0-76.0); PLATELET 206 x1000/uL (130-400); RED BLOOD CELL COUNT 4.71 mill/uL (4.7-6.1); RED CELL DISTRIBUTION WIDTH 18.3 % (11.6-14.6)
[2019-10-31] MEDS: BLOOD SUGAR DIAGNOSTIC STRIP TEST SCH ×3 (06:24→17:08)
[2019-10-31] MEDS: INSULIN LISPRO 100 UNITS/ML SUBCUT SCH ×3 (07:50→17:09)
[2019-10-31] MEDS: GUAIFENESIN 600MG ER TABLET PO SCH (09:15)
[2019-10-31] MEDS: FUROSEMIDE 40MG/4ML VIAL IVP SCH (09:16)
[2019-10-31] MEDS: DILTIAZEM HCL 120MG CAPSULE CD 24HR PO SCH (09:16)
[2019-10-31] MEDS: CLONIDINE 0.1MG TABLET PO SCH ×2 (09:17→16:17)
[2019-10-31] MEDS: ENOXAPARIN 30MG/0.3ML SYR SUBCUT SCH (17:00)
== END 2019-10-31 16:45 | disposition home or self-care (01) | DRG 194 ==
LOC: ER 04:39 → 6WST 11:15 → EDBEDREQ 11:29 → EDBEDREQTM 11:29 → ENRESERV 14:52
PROVIDERS: ADMIT Internal Medicine; ATTEND Internal Medicine
DX: I13.0 Hypertensive heart and chronic kidney disease with heart failure and stage 1 through stage 4 chronic kidney disease, or unspecified chronic kidney disease (principal); J96.00 Acute respiratory failure, unspecified whether with hypoxia or hypercapnia; N17.9 Acute kidney failure, unspecified; N18.9 Chronic kidney disease, unspecified; E11.22 Type 2 diabetes mellitus with diabetic chronic kidney disease; N39.0 Urinary tract infection, site not specified; I48.0 Paroxysmal atrial fibrillation; I35.0 Nonrheumatic aortic (valve) stenosis; J18.9 Pneumonia, unspecified organism; D64.9 Anemia, unspecified; N13.8 Other obstructive and reflux uropathy; N40.1 Benign prostatic hyperplasia with lower urinary tract symptoms; J44.0 Chronic obstructive pulmonary disease with (acute) lower respiratory infection; Z79.899 Other long term (current) drug therapy; Z79.82 Long term (current) use of aspirin; M94.0 Chondrocostal junction syndrome [Tietze]; I50.21 Acute systolic (congestive) heart failure
CPT/HCPCS: 36415; 71045; 76770; 80048; 80053; 80061; 81003; 82550; 82962; 83036; 83735; 83880; 84100; 84443; 84484; 85025; 93005; 93306; 93970; 97116; 97162; 97530; 99285; J1650; J1815; J1940

== ENCOUNTER 2019-11-23 05:13 | Inpatient (IN) | payer MEDICARE, MEDICAID ==
[~2019-11-23] VITALS: Ht 170.2 cm; Wt 68.5 kg
[2019-11-23] MEDS ORDERED: NITROGLYCERIN OINT 1GM/INCH UDPKT TD ONE (06:00)
[2019-11-23 06:06] LABS: BASOPHILS % 0.4 % (0.0-2.0); EOSINOPHILS % 1.2 % (0.0-5.0); HEMATOCRIT. 36.8 % (42.0-52.0); HEMOGLOBIN. 11.6 g/dL (14.0-18.0); LYMPHOCYTES % 16.7 % (20.0-50.0); MEAN CORPUSCULAR HEMOGLOBIN 24.3 pg (28.0-32.0); MEAN CORPUSCULAR VOLUME 77.1 fL (80.0-94.0); MEAN PLATELET VOLUME 7.7 fl (7.4-10.4); MONOCYTES % 7.5 % (2.0-8.0); NEUTROPHILS % 74.2 % (40.0-76.0); PLATELET 305 x1000/uL (130-400); RED BLOOD CELL COUNT 4.77 mill/uL (4.7-6.1); RED CELL DISTRIBUTION WIDTH 17.3 % (11.6-14.6)
[2019-11-23 06:12] LABS: CHLORIDE 111 mEq/L (98-107)
[2019-11-23] MEDS ORDERED: ASPIRIN 81MG TABLET PO ONE (06:30)
[2019-11-23] MEDS ORDERED: NITROGLYCERIN 0.4MG TABLET SL SL PRN (10:00)
[2019-11-23] MEDS ORDERED: IPRATROPIUM/ALBUTEROL 0.5-3(2.5)MG/3ML NEB HHN PRN (10:00)
[2019-11-23] MEDS ORDERED: TRAMADOL 50MG TABLET PO PRN (10:00)
[2019-11-23] MEDS: AMLODIPINE 10MG TABLET PO SCH (10:36)
[2019-11-23 13:35] LABS: CLARITY URINE CLOUDY (CLEAR); COLOR URINE YELLOW (YELLOW); KETONES URINE NEGATIVE (NEGATIVE); LEUKOCYTE ESTERASE URINE 2+ (NEGATIVE); NITRITE URINE NEGATIVE (NEGATIVE); OCCULT BLOOD URINE 2+ (NEGATIVE); PROTEIN URINE 2+ (NEGATIVE); SPECIFIC GRAVITY URINE 1.009 (1.005-1.030); UROBILINOGEN URINE 0.2 E.U./dL (0.2-1.0)
[2019-11-23] MEDS: CLONIDINE 0.1MG TABLET PO PRN ×2 (13:45→18:43)
[2019-11-23] MEDS ORDERED: HYDRALAZINE HCL 50MG TABLET PO NR (17:00)
[2019-11-23 17:25] VITALS: BP 182/82
[2019-11-23 20:00] VITALS: BP_SYST 149; BP_SYST 90; BP_DIAS 47; BP_DIAS 68
[2019-11-23] MEDS ORDERED: LORAZEPAM 2MG/ML CPJ IV PRN (21:00)
[2019-11-23] MEDS ORDERED: DIPHENHYDRAMINE 50MG/ML VIAL IV PRN (21:00)
[2019-11-23] MEDS: HYDRALAZINE HCL 50MG TABLET PO SCH (21:48)
[2019-11-23] MEDS: MORPHINE SULFATE 2 MG/ML CPJ (NOT FOR IM USE) IV PRN (21:49)
[2019-11-24] VITALS: BP 140/70
[2019-11-24] MEDS: MORPHINE SULFATE 2 MG/ML CPJ (NOT FOR IM USE) IV PRN (01:37)
[2019-11-24 04:00] VITALS: BP 149/68
[2019-11-24] MEDS ORDERED: DEXTROSE 50% WATER 50ML SYRINGE IV PRN (06:15)
[2019-11-24 06:40] LABS: BASOPHILS % 0.7 % (0.0-2.0); EOSINOPHILS % 0.6 % (0.0-5.0); HEMATOCRIT. 35.4 % (42.0-52.0); HEMOGLOBIN. 11.4 g/dL (14.0-18.0); LYMPHOCYTES % 15.3 % (20.0-50.0); MEAN CORPUSCULAR VOLUME 77.2 fL (80.0-94.0); MEAN PLATELET VOLUME 8.4 fl (7.4-10.4); MONOCYTES % 7.6 % (2.0-8.0); NEUTROPHILS % 75.8 % (40.0-76.0); PLATELET 298 x1000/uL (130-400); RED BLOOD CELL COUNT 4.58 mill/uL (4.7-6.1); RED CELL DISTRIBUTION WIDTH 17.9 % (11.6-14.6)
[2019-11-24] MEDS ORDERED: BLOOD SUGAR DIAGNOSTIC STRIP TEST SCH (06:45)
[2019-11-24] MEDS ORDERED: INSULIN LISPRO 100 UNITS/ML SUBCUT SCH (07:15)
[2019-11-24 07:56] VITALS: BP 100/61
[2019-11-24] MEDS: HYDRALAZINE HCL 50MG TABLET PO SCH (08:43)
[2019-11-24] MEDS: AMLODIPINE 10MG TABLET PO SCH (08:43)
[2019-11-24] MEDS ORDERED: ASPIRIN 81MG TABLET PO SCH (09:00)
[2019-11-24] MEDS ORDERED: TAMSULOSIN HCL 0.4MG SR CAPSULE PO SCH (09:00)
[2019-11-24 12:00] VITALS: BP 159/68
[2019-11-24] MEDS ORDERED: FLUT1DIS3 INH (12:59)
[2019-11-24] MEDS ORDERED: CLON-457 PO (12:59)
[2019-11-24] MEDS ORDERED: ALBU18HF2 IH (12:59)
[2019-11-24] MEDS ORDERED: ASPI-1160 PO (12:59)
[2019-11-24] MEDS ORDERED: SITA100T11 PO (12:59)
[2019-11-24] MEDS ORDERED: TAMS-11 PO (12:59)
[2019-11-24] MEDS ORDERED: CARD12 PO (12:59)
[2019-11-24 14:51] VITALS: BP 159/68
== END 2019-11-24 13:40 | disposition home or self-care (01) | DRG 203 ==
LOC: ER 05:13 → 5WST 07:55 → ENRESERV 15:52
PROVIDERS: ADMIT Internal Medicine; ATTEND Internal Medicine
DX: M94.0 Chondrocostal junction syndrome [Tietze] (principal); R07.89 Other chest pain; D64.9 Anemia, unspecified; E11.22 Type 2 diabetes mellitus with diabetic chronic kidney disease; E44.1 Mild protein-calorie malnutrition; E78.5 Hyperlipidemia, unspecified; E87.8 Other disorders of electrolyte and fluid balance, not elsewhere classified; I13.0 Hypertensive heart and chronic kidney disease with heart failure and stage 1 through stage 4 chronic kidney disease, or unspecified chronic kidney disease; F17.210 Nicotine dependence, cigarettes, uncomplicated; I48.0 Paroxysmal atrial fibrillation; I35.0 Nonrheumatic aortic (valve) stenosis; I50.20 Unspecified systolic (congestive) heart failure; J44.9 Chronic obstructive pulmonary disease, unspecified; N17.9 Acute kidney failure, unspecified; N18.9 Chronic kidney disease, unspecified; N40.0 Benign prostatic hyperplasia without lower urinary tract symptoms; Z68.23 Body mass index [BMI] 23.0-23.9, adult; Z71.6 Tobacco abuse counseling
CPT/HCPCS: 36415; 71045; 80048; 80053; 81003; 82962; 83036; 83880; 84484; 85025; 93005; 97116; 97162; 99291; J1200; J2270

== ENCOUNTER 2020-01-27 23:20 | Inpatient (IN) | payer MEDICARE, MEDICAID ==
[~2020-01-27] VITALS: Ht 157.5 cm; Wt 57.2 kg
[~2020-01-27 23:20] MED LIST changes: -AMLO10TA80 MT; +ASPI-1160 PO; +FLUT1DIS3 INH
[2020-01-28 00:37] LABS: BASOPHILS % 0.5 % (0.0-2.0); EOSINOPHILS % 1.4 % (0.0-5.0); HEMATOCRIT. 37.9 % (42.0-52.0); HEMOGLOBIN. 11.8 g/dL (14.0-18.0); MEAN CORPUSCULAR HEMOGLOBIN 24.8 pg (28.0-32.0); MEAN CORPUSCULAR VOLUME 79.3 fL (80.0-94.0); MONOCYTES % 6.5 % (2.0-8.0); NEUTROPHILS % 77.6 % (40.0-76.0); PLATELET 206 x1000/uL (130-400); RED BLOOD CELL COUNT 4.78 mill/uL (4.7-6.1); RED CELL DISTRIBUTION WIDTH 17.8 % (11.6-14.6)
[2020-01-28 00:39] LABS: CHLORIDE 114 mEq/L (98-107)
[2020-01-28] MEDS ORDERED: FUROSEMIDE 40MG/4ML VIAL IVP SCH (02:00)
[2020-01-28 02:22] LABS: PARTIAL THROMBOPLASTIN TIME 27.1 sec (23.4-31.0); PROTHROMBIN TIME 10.5 sec (9.6-11.0)
[2020-01-28] MEDS ORDERED: ENOXAPARIN 80MG/0.8ML SYR SUBCUT SCH (03:00)
[2020-01-28 06:10] VITALS: BP 180/60
[2020-01-28] MEDS ORDERED: ALBUTEROL 6.7GM HFA INHALER ORI PRN (07:15)
[2020-01-28] MEDS ORDERED: CLONIDINE 0.1MG TABLET PO PRN (07:15)
[2020-01-28] MEDS ORDERED: DEXTROSE 50% WATER 50ML SYRINGE IV PRN (07:15)
[2020-01-28] MEDS ORDERED: PNEUMOCOCCAL 23-VAL P-SAC VAC 0.5 ML IM ONE (08:45)
[2020-01-28] MEDS ORDERED: INFLUENZA VACCINE 05/PF 0.5 ML VIAL IM ONE (08:45)
[2020-01-28] MEDS ORDERED: CARVEDILOL 3.125 MG TABLET PO SCH (09:00)
[2020-01-28] MEDS ORDERED: FUROSEMIDE 40MG TABLET PO SCH (09:00)
[2020-01-28] MEDS: LISINOPRIL 10MG TABLET PO SCH (09:23)
[2020-01-28] MEDS: ASPIRIN 81MG TABLET PO SCH (09:23)
[2020-01-28] MEDS: BLOOD SUGAR DIAGNOSTIC STRIP TEST SCH ×3 (11:40→21:00)
[2020-01-28] MEDS ORDERED: BLOOD SUGAR DIAGNOSTIC STRIP TEST SCH (11:40)
[2020-01-28 12:00] VITALS: BP 175/88
[2020-01-28] MEDS: INSULIN LISPRO 100 UNITS/ML SUBCUT SCH ×3 (12:10→21:00)
[2020-01-28] MEDS: HYDRALAZINE HCL 100MG TABLET PO SCH ×2 (12:33→22:34)
[2020-01-28] MEDS ORDERED: HYDRALAZINE HCL 50MG TABLET PO SCH (13:00)
[2020-01-28] MEDS: GABAPENTIN 300MG CAPSULE PO SCH ×2 (14:04→22:34)
[2020-01-28] MEDS: TRAMADOL 50MG TABLET PO PRN (14:05)
[2020-01-28] MEDS: ALBUTEROL 6.7GM HFA INHALER ORI SCH (15:15)
[2020-01-28 16:00] VITALS: BP 126/61
[2020-01-28] MEDS: FUROSEMIDE 40MG/4ML VIAL IVP SCH (19:12)
[2020-01-28 20:00] VITALS: BP 138/84
[2020-01-28] MEDS: ATORVASTATIN CALCIUM 40MG TABLET PO SCH (22:34)
[2020-01-29] VITALS: BP 171/79
[2020-01-29 04:00] VITALS: BP 136/76
[2020-01-29] MEDS: BLOOD SUGAR DIAGNOSTIC STRIP TEST SCH ×4 (06:30→21:00)
[2020-01-29] MEDS: HYDRALAZINE HCL 100MG TABLET PO SCH ×3 (06:36→21:08)
[2020-01-29] MEDS: GABAPENTIN 300MG CAPSULE PO SCH ×3 (06:36→21:08)
[2020-01-29] MEDS: INSULIN LISPRO 100 UNITS/ML SUBCUT SCH ×4 (06:37→20:42)
[2020-01-29 07:29] LABS: BASOPHILS % 0.3 % (0.0-2.0); EOSINOPHILS % 0.1 % (0.0-5.0); HEMATOCRIT. 37.6 % (42.0-52.0); LYMPHOCYTES % 7.5 % (20.0-50.0); MEAN CORPUSCULAR VOLUME 78.5 fL (80.0-94.0); MEAN PLATELET VOLUME 9.1 fl (7.4-10.4); MONOCYTES % 8.1 % (2.0-8.0); PLATELET 217 x1000/uL (130-400); RED BLOOD CELL COUNT 4.79 mill/uL (4.7-6.1); RED CELL DISTRIBUTION WIDTH 17.2 % (11.6-14.6)
[2020-01-29 08:00] VITALS: BP 130/69
[2020-01-29] MEDS: LISINOPRIL 10MG TABLET PO SCH (09:06)
[2020-01-29] MEDS: ASPIRIN 81MG TABLET PO SCH (09:06)
[2020-01-29] MEDS: FUROSEMIDE 40MG/4ML VIAL IVP SCH (09:39)
[2020-01-29 12:00] VITALS: BP 144/68
[2020-01-29] MEDS ORDERED: REGADENOSON 0.4 MG/5 ML IV ONE (13:15)
[2020-01-29] MEDS: ALBUTEROL 6.7GM HFA INHALER ORI SCH ×2 (15:15→21:09)
[2020-01-29 16:00] VITALS: BP 135/66
[2020-01-29 20:00] VITALS: BP 124/63
[2020-01-29] MEDS: ATORVASTATIN CALCIUM 40MG TABLET PO SCH (21:08)
[2020-01-30] VITALS: BP 118/69
[2020-01-30] MEDS: ALBUTEROL 6.7GM HFA INHALER ORI SCH ×2 (03:10→09:04)
[2020-01-30 04:00] VITALS: BP 140/70
[2020-01-30] MEDS: HYDRALAZINE HCL 100MG TABLET PO SCH ×3 (05:39→21:07)
[2020-01-30] MEDS: GABAPENTIN 300MG CAPSULE PO SCH ×3 (05:46→21:07)
[2020-01-30] MEDS: INSULIN LISPRO 100 UNITS/ML SUBCUT SCH ×4 (05:47→21:08)
[2020-01-30] MEDS: BLOOD SUGAR DIAGNOSTIC STRIP TEST SCH ×4 (05:47→21:07)
[2020-01-30 08:00] VITALS: BP 127/66
[2020-01-30] MEDS: ASPIRIN 81MG TABLET PO SCH (08:50)
[2020-01-30] MEDS: LISINOPRIL 10MG TABLET PO SCH (08:50)
[2020-01-30] MEDS: FUROSEMIDE 40MG/4ML VIAL IVP SCH (08:55)
[2020-01-30 11:42] VITALS: BP 99/57
[2020-01-30 15:39] VITALS: BP 121/63
[2020-01-30 20:48] VITALS: BP 113/52
[2020-01-30] MEDS: ATORVASTATIN CALCIUM 40MG TABLET PO SCH (21:06)
[2020-01-31] MEDS: IPRATROPIUM/ALBUTEROL 0.5-3(2.5)MG/3ML NEB HHN SCH ×5 (00:28→15:55)
[2020-01-31 00:33] VITALS: BP 105/61
[2020-01-31 04:00] VITALS: BP 109/63
[2020-01-31] MEDS: GABAPENTIN 300MG CAPSULE PO SCH ×3 (05:34→14:17)
[2020-01-31] MEDS: HYDRALAZINE HCL 100MG TABLET PO SCH ×2 (05:35→14:17)
[2020-01-31] MEDS: BLOOD SUGAR DIAGNOSTIC STRIP TEST SCH ×2 (06:20→12:20)
[2020-01-31 06:37] LABS: BASOPHILS % 0.3 % (0.0-2.0); EOSINOPHILS % 0.3 % (0.0-5.0); HEMATOCRIT. 39.4 % (42.0-52.0); HEMOGLOBIN. 12.3 g/dL (14.0-18.0); LYMPHOCYTES % 11.1 % (20.0-50.0); MEAN CORPUSCULAR HEMOGLOBIN 24.8 pg (28.0-32.0); MEAN CORPUSCULAR VOLUME 79.6 fL (80.0-94.0); MEAN PLATELET VOLUME 9.6 fl (7.4-10.4); MONOCYTES % 12.7 % (2.0-8.0); NEUTROPHILS % 75.6 % (40.0-76.0); PLATELET 211 x1000/uL (130-400); RED BLOOD CELL COUNT 4.95 mill/uL (4.7-6.1); RED CELL DISTRIBUTION WIDTH 17.9 % (11.6-14.6)
[2020-01-31] MEDS: INSULIN LISPRO 100 UNITS/ML SUBCUT SCH ×3 (07:23→17:32)
[2020-01-31] MEDS ORDERED: REGADENOSON 0.4 MG/5 ML IV ONE (07:35)
[2020-01-31] MEDS: TRAMADOL 50MG TABLET PO PRN ×2 (10:03→16:28)
[2020-01-31] MEDS: ASPIRIN 81MG TABLET PO SCH (10:03)
[2020-01-31 12:14] VITALS: BP 127/67
[2020-01-31] MEDS ORDERED: CLON-457 PO (13:16)
[2020-01-31] MEDS ORDERED: TAMS-11 PO (13:16)
[2020-01-31] MEDS ORDERED: CARD12 PO (13:16)
[2020-01-31] MEDS ORDERED: ASPI-1160 PO (13:16)
[2020-01-31] MEDS ORDERED: FLUT1DIS3 INH (13:16)
[2020-01-31] MEDS ORDERED: ALBU18HF2 IH (13:16)
[2020-01-31 15:19] VITALS: BP 115/63
[2020-01-31 17:33] VITALS: BP 115/63
[2020-01-31] MEDS ORDERED: CARVEDILOL 3.125 MG TABLET PO SCH (21:00)
== END 2020-01-31 18:30 | disposition home or self-care (01) | DRG 133 ==
LOC: ER 23:20 → 7EST 01-28 02:36 → ENRESERV 01-28 04:00 → 7EST 01-28 06:46 → 6WST 01-30 11:02
PROVIDERS: ADMIT Internal Medicine; ATTEND Internal Medicine
DX: J96.00 Acute respiratory failure, unspecified whether with hypoxia or hypercapnia (principal); E78.5 Hyperlipidemia, unspecified; J44.9 Chronic obstructive pulmonary disease, unspecified; E44.0 Moderate protein-calorie malnutrition; N17.9 Acute kidney failure, unspecified; N18.9 Chronic kidney disease, unspecified; E11.22 Type 2 diabetes mellitus with diabetic chronic kidney disease; N40.0 Benign prostatic hyperplasia without lower urinary tract symptoms; E87.8 Other disorders of electrolyte and fluid balance, not elsewhere classified; D64.9 Anemia, unspecified; E78.00 Pure hypercholesterolemia, unspecified; F17.210 Nicotine dependence, cigarettes, uncomplicated; I12.9 Hypertensive chronic kidney disease with stage 1 through stage 4 chronic kidney disease, or unspecified chronic kidney disease; Z20.828 Contact with and (suspected) exposure to other viral communicable diseases; Z79.899 Other long term (current) drug therapy; Z68.23 Body mass index [BMI] 23.0-23.9, adult; I50.33 Acute on chronic diastolic (congestive) heart failure
CPT/HCPCS: 36415; 71045; 78452; 80048; 80053; 82962; 83036; 83605; 83880; 84145; 84484; 85025; 85379; 87635; 87804; 90686; 90732; 93005; 93017; 97162; 99291; A9500; J1650; J1815; J1940; J2785